=== PATIENT | female | born 1960 | race Caucasian/White ===

== ENCOUNTER 2018-07-24 21:32 | Inpatient (IN) | payer OTHER ==
[~2018-07-24] VITALS: Ht 157.4 cm; Wt 68.3 kg
--- NOTE | ~2018-07-24 | DS ---
[place], [place] DISCHARGE SUMMARY [facility]: [facility]EN [id number] UN[facility] #: [id number] ROOM: 315 DOCTOR: PRIYANKA LOZADA MD BIRTHDATE: [birth year] DOS: 08/16/2018 CHIEF COMPLAINT: "I have memory loss." HISTORY OF PRESENT ILLNESS: This is a 58-year-old white female who presented to the [facility] for psychiatric care. The patient was pink slipped at [facility] in [place]. [place] slip did indicate that she was having significant auditory hallucinations, very bizarre behavior, nonstop pacing and not sleeping at night. The patient was also grossly paranoid and believed that the police or [employer] were out to get her. She was admitted now to rule out organic factors, to stabilize on medication and to determine the least restrictive environment to which she could return. SUMMARY OF HOSPITAL COURSE: The patient was admitted to the unit where her Lexapro and Abilify were discontinued as was trazodone. The patient was started on Remeron for depression and given the severity of her psychosis was started on Invega 6 mg a day. Eventually, it was felt that the Remeron was ineffective, so after many days of treatment this was discontinued and Trintellix 10 mg a day was started. The dose of the Trintellix was subsequently increased to its maximum dose of 20 mg a day. Invega was increased to 9 mg in the morning to attempt to break this significant psychosis. This was unrelenting for the most part. Towards the latter part of her stay, Ativan 1 mg t.i.d. was added with significant benefit. The patient suddenly became much less preoccupied with being sent to [facility] or half-way and was much more redirectable. She seemed calmer and more relaxed. She actually engaged in britton activities much better and even attended to her ADLs better. Because of the significant mental decline and her significant need for support and redirection. A passer was obtained and the patient was subsequently sent to [facility] for further treatment. MENTAL STATUS AT DISCHARGE: She is alert and oriented with time gaps. Mood is somewhat more euthymic and more pleasant. She is much more engaging. She is still somewhat delusional, but this has significantly decreased in frequency and intensity. Memory for the most part is intact with short-term memory gaps. DIAGNOSES: Major depression, recurrent with psychotic features. PLAN: All of her prescriptions have been printed and will be sent with her to [facility]. I will follow the patient psychiatrically. At the time of discharge, she was medically and psychiatrically stable. [place], [place] DISCHARGE SUMMARY NAME: LC BRADEN UNIT #: [id number] ROOM: [facility] DOCTOR: PRIYANKA LOZADA MD BIRTHDATE: [birth year] PRIYANKA LOZADA MD CM:DISCHARG [id number] PRIYANKA LOZADA MD 08/16/18 1830 interface
--- NOTE | ~2018-07-24 | PN ---
[place], [place] PROGRESS NOTE NAME: LC BRADEN UNIT #: [id number] ROOM: 315 DOCTOR: PRIYANKA LOZADA MD BIRTHDATE: [birth year] DATE: 07/30/18 ADDENDUM: Resident note reviewed. Agree with observations, recommendations, and overall treatment plan. PRIYANKA LOZADA MD CM:PNTRANS [id number] [id number] PRIYANKA LOZADA MD 09/02/18 1040 ALEX MILIAN MIS.LLR
--- NOTE | ~2018-07-24 | PR ---
[place], [place] PROGRESS NOTE NAME: LC BRADEN UNIT #: [id number] ROOM: 315 DOCTOR: PRIYANKA LOZADA MD BIRTHDATE: [birth year] DOS: 08/09/2018 CHIEF COMPLAINT: "I don't want to eat because they are going to be taking me to prison soon." SUMMARY OF THE VISIT: Although the patient did make those comments that I have listed above. She did appear calmer and less distraught as I approached her. She did not have the horrible frown on her face and although she mentioned going to prison, she also engaged in other pleasant conversation with me. Nurses and other staff members have noted that she is more engaging in activities and more interested in what is going on. This all corresponds to me starting the Ativan yesterday. MENTAL STATUS: She is alert and oriented to person, place, and approximate to time. Mood does seem to be trending towards euthymia and affect is more appropriate. The anxiety level seems to have dissipated, although she still voices nihilistic and paranoid delusions. Short-term memory has gaps. PLAN: She does seem to be tolerating the Ativan well and I do not see any sedation or somnolence. I will go ahead and increase the dose from 0.5 mg 3 times a day to 1 mg 3 times a day and monitor for risk, benefit, engage her in individual and britton milieu activity, returning then to the least restrictive environment when psychiatrically stable. PRIYANKA LOZADA MD CM:PNTRANS 0939 [id number] PRIYANKA LOZADA MD 08/09/18 1334 interface
--- NOTE | ~2018-07-24 | PN ---
[place], [place] PROGRESS NOTE NAME: LC BRADEN UNIT #: [id number] ROOM: 315 DOCTOR: PRIYANKA LOZADA MD BIRTHDATE: [birth year] DATE: 07/31/18 ADDENDUM: Resident note reviewed. Agree with observations, recommendations, and overall treatment plan. PRIYANKA LOZADA MD CM:PNTRANS 1039 [id number] PRIYANKA LOZADA MD 09/02/18 1040 ALEX MILIAN MIS.LLR
--- NOTE | ~2018-07-24 | PR ---
[place], [place] PROGRESS NOTE NAME: LC BRADEN UNIT #: [id number] ROOM: 310 DOCTOR: BINTA BRAVO DO BIRTHDATE: [birth year] DOS: 07/30/2018 PSYCHIATRIC PROGRESS NOTE CHIEF COMPLAINT: "Okay. Food was yucky, I don't know." SUMMARY OF VISIT: The patient interviewed while sitting in the dining cm. The patient expresses that she does not like the food, but is unsure what would make her eat more or like more food. The patient states that she takes care of her grandkids at home that are about 10 and 12 years old. She mentioned that it has been a while since she spoke to them. Per nursing staff, the patient had very broken up sleep and only slept about 4 hours last night. She continues to eat very little of every meal and she is taking her medications when they are given to her though including Marinol. MENTAL STATUS EXAMINATION: She is alert and oriented. Mood is depressed. Affect is flat, blunted, and constricted. Her speech rate is slow and deliberate. There is no smiley, hypomania or psychosis. Memory for the most part is intact. PLAN: Neurontin level will be checked this morning. Also, we will increase Trintellix to 20 mg at bedtime, Rozerem 8 mg at bedtime. We will engage her in individual and britton milieu activity with plan to return to the least restrictive environment when psychiatrically stable. Binta Bravo, PRIYANKA LOZADA MD CM:PNTRANS [id number] [id number] BINTA BRAVO DO 07/31/18 1550 interface
--- NOTE | ~2018-07-24 | PR ---
[place], [place] PROGRESS NOTE NAME: LC BRADEN UNIT #: [id number] ROOM: 310 DOCTOR: PRIYANKA LOZADA MD BIRTHDATE: [birth year] DOS: 08/01/2018 INTERVAL NOTE CHIEF COMPLAINT: "I am never going to get better. I am not going to get well. I will never leave the hospital." SUMMARY OF THE VISIT: The patient was interviewed as she was sitting in front of an entire breakfast that was left untouched. She remains very depressed and very nihilistic. Her delusional system does seem to be much more progressive. MENTAL STATUS: She is alert and oriented with time gaps. Mood is depressed with flat, blunted affect. There is also a significant delusional component as she is very much nihilistic in her thinking. Short-term memory has gaps. PLAN: At this point in time, given the severity of her delusions, I will increase the Zyprexa from 2.5 to 5 mg at bedtime. This will allow me to discontinue the Rozerem to simplify her medication regimen. Of note, despite the Marinol, she is not eating well and I also wonder if the Marinol could be contributing negatively to her mental status, I will discontinue it and monitor, engage in individual and britton milieu activity, returning to the least restrictive environment when psychiatrically stable. PRIYANKA LOZADA MD CM:PNTRANS 0935 [id number] PRIYANKA LOZADA MD 08/01/18 1553 interface
--- NOTE | ~2018-07-24 | PR ---
[place], [place] PROGRESS NOTE NAME: LC BRADEN UNIT #: [id number] ROOM: 315 DOCTOR: PRIYANKA LOZADA MD BIRTHDATE: [birth year] DOS: 08/15/2018 CHIEF COMPLAINT: "Am I going to be going soon." SUMMARY OF THE VISIT: The patient was interviewed in the dining area. She had already eaten her breakfast. She was sitting quietly there. I did engage her in conversation, telling her that she would be leaving the hospital soon. She smiled and nodded in approval. Overall, she does seem to be trending towards euthymia and does seem to be improving day by day. There are no outward signs of medication side effects and I see no sedation, somnolence, extrapyramidal symptoms, or tardive dyskinesia. MENTAL STATUS: She is alert and oriented to person, place, not necessarily time. Mood does seem to be trending towards euthymia. Affect is more appropriate. There is no smiley, hypomania, or psychosis. Short term memory does have gaps. PLAN: I will maintain her current psychotropic regimen, continue to engage in individual and britton milieu activity, returning to the least restrictive environment when psychiatrically stable. PRIYANKA LOZADA MD CM:PNTRANS [id number] PRIYANKA LOZADA MD 08/15/18 1416 interface
--- NOTE | ~2018-07-24 | PR ---
[place], [place] PROGRESS NOTE NAME: LC BRADEN UNIT #: [id number] ROOM: 315 DOCTOR: PRIYANKA LOZADA MD BIRTHDATE: [birth year] DOS: 08/08/2018 CHIEF COMPLAINT: "This is all fake food and fake medicine, they are going to take me to senior living anyway." SUMMARY OF THE VISIT: The patient was interviewed in the dining area. She had eaten only about 10% of her breakfast and had left the rest. She looked very kelly and distraught as I approached and continued to be very paranoid. There is a great deal of anxiety present as well. MENTAL STATUS: She is alert and oriented with some time gaps. Mood does seem to be depressed with anxious overtones and she remains grossly nihilistic and delusional. Memory for the most part is intact. PLAN: Given the amount of anxiety that is present, I will go ahead and start Ativan 0.5 mg t.i.d. to see if this will dissipate the anxiety and make her more comfortable. We will monitor for risk, benefit, engage in individual and britton milieu activity, returning to the least restrictive environment when psychiatrically stable. PRIYANKA LOZADA MD CM:PNTRANS 0943 1050 PRIYANKA LOZADA MD 08/08/18 1049 interface
--- NOTE | ~2018-07-24 | PR ---
[place], [place] PROGRESS NOTE NAME: LC BRADEN UNIT #: [id number] ROOM: 315 DOCTOR: PRIYANKA LOZADA MD BIRTHDATE: [birth year] DOS: 08/06/2018 CHIEF COMPLAINT: "I don't belong here. I know the police are going to come and arrest me soon." SUMMARY OF THE VISIT: The patient was interviewed in the dining area. As I approached her, she looked very kelly and angry. She engaged in conversation that was rather superficial and very nihilistic. She continues to state that she does not belong here, that her name is not on the list. Again, when I did show her the list and point to her name, she reported to me that that was not her. When I did point out her name armond as well, she also reported that is not her. She is on the wrong unit and because of that she is going to be punished and sent to longterm. The patient had been compliant with her medications, but later after I rounded, the nurse that was attending to her did report that she refused all of her a.m. medicines this morning. MENTAL STATUS: She is alert and oriented to person, place and very approximate to time. Mood does seem to be very depressed and nihilistic in her approach. There are some anxious overtones, as she is very fretful and worried about being arrested. She remains grossly psychotic and delusional. Memory for the most part is intact. PLAN: I am going to attempt to switch off the Zyprexa onto Invega 6 mg in the morning. If she is noncompliant with the Invega, I will consider Risperdal M-Tab and if I have to, utilize an Invega Sustenna prep to improve compliance. We will engage her in individual and britton milieu activities, returning to the least restrictive environment when psychiatrically stable. PRIYANKA LOZADA MD CM:PNTRANS [phone] PRIYANKA LOZADA MD 08/06/18 2333 interface
--- NOTE | ~2018-07-24 | PR ---
[place], [place] PROGRESS NOTE NAME: LC BRADEN UNIT #: [id number] ROOM: 310 DOCTOR: PRIYANKA LOZADA MD BIRTHDATE: [birth year] DOS: 08/02/2018 CHIEF COMPLAINT: "I am never going home, I am never leaving the hospital." SUMMARY OF THE VISIT: The patient was interviewed as she was sitting sipping on an Ensure and watching television. She engaged readily in conversation. She remains very depressed and very nihilistic. Nurses report that she remains very delusional and paranoid and believes that we are giving her fake medicine and are trying to poison her. She also believes that she is on the wrong medical floor and needs to be on the medical floor. She is very hard to redirect and she has not been cooperative with many aspects of her care. MENTAL STATUS: She is alert and oriented with time gaps. Mood does seem to be still depressed with anxious overtones with significant delusions present. No sedation, somnolence or extrapyramidal symptoms are noted. PLAN: I will go ahead and increase her Zyprexa from 5 mg at bedtime to 7.5, maintain her current dose of Trintellix, engage in individual and britton milieu activities, returning to the least restrictive environment when psychiatrically stable. PRIYANKA LOZADA MD CM:PNTRANS [id number] PRIYANKA LOZADA MD 08/02/18 1741 interface
--- NOTE | ~2018-07-24 | PR ---
[place], [place] PROGRESS NOTE NAME: LC BRADEN UNIT #: [id number] ROOM: 310 DOCTOR: BINTA BRAVO DO BIRTHDATE: [birth year] DOS: 07/31/2018 PSYCHIATRIC PROGRESS NOTE CHIEF COMPLAINT: "Ya, I am probably never getting out of here." SUMMARY OF VISIT: The patient is interviewed while lying in bed. She appears very depressed and expressed that she does not think she will ever be able to leave. However when asked, the patient denies being sad or depressed. She did mention that both of her legs are achy. Per nursing staff, she slept throughout the night; however yesterday, she initially started communicating more, stating that she did not want to be here tonight, but she did not like the yelling and screaming. Per staff, the previous night, the patient's roommate was up most of the night, talking and yelling loudly. The patient was then moved to a room that she will have by herself. The patient also did have increased intake yesterday when she was provided with smaller portions of meals multiple times throughout the day; however, last night, the patient was more depressed with limited verbal interactions and poor contact with staff. She refused snacks at night. MENTAL STATUS EXAMINATION: She is alert and oriented. Mood is depressed. Affect is flat and blunted. Her speech rate is slow. There is no hypomania, smiley or psychotic symptoms. Memory for the most part is intact. PLAN: Renew Ativan p.r.n. doses. Start Zyprexa 2.5 mg at bedtime. We will continue to engage in individual and britton milieu activity with plan to return to the least restrictive environment when psychiatrically stable. Binta Bravo, DO PRIYANKA LOZADA MD CM:PNTRANS 0107 BINTA BRAVO DO 08/01/18 0316 interface
--- NOTE | ~2018-07-24 | PR ---
[place], [place] PROGRESS NOTE NAME: LC BRADEN UNIT #: [id number] ROOM: 315 DOCTOR: PRIYANKA LOZADA MD BIRTHDATE: [birth year] DOS: 08/13/2018 INTERVAL NOTE CHIEF COMPLAINT: "Good morning." SUMMARY OF THE VISIT: The patient was interviewed as she was sitting at the edge of her bed. She engaged in brief conversation. She did not mention once about being sent to shelter or alf. She did report that she is feeling tired and did state that she thought she was getting too much medicine now. I did talk to her about lowering the Ativan and she nodded in approval. MENTAL STATUS: She is alert and oriented with time gaps. Mood does seem to be strongly trending towards euthymia. Affect is more appropriate. There is no smiley or hypomania noted. There is no gross psychosis. Short-term memory has mild gaps, but for the most part, she is intact. PLAN: I will go ahead and lower the Ativan from 1 mg 4 times a day to 1 mg 3 times a day and renew her p.r.n. Ativan. PRIYANKA LOZADA MD CM:PNTRANS [phone] PRIYANKA LOZADA MD 08/13/18 1649 interface
--- NOTE | ~2018-07-24 | PR ---
[place], [place] PROGRESS NOTE NAME: LC BRADEN UNIT #: [id number] ROOM: 315 DOCTOR: PRIYANKA LOZADA MD BIRTHDATE: [birth year] DOS: 08/14/2018 CHIEF COMPLAINT: "I want to go home soon." SUMMARY OF THE VISIT: The patient was interviewed in the dining area. She engaged readily in conversation. She did report that she is anxious to go home. At no point in time did she talked about police or [employer] coming to pick her up. She did seem to be slightly brighter and more spontaneous and convincingly denied medication side effects. MENTAL STATUS: She is alert and oriented to self, place, approximate to time. Mood does seem to be trending towards euthymia. Affect is more appropriate. There is no smiley or hypomania. There are no gross psychosis. Short term memory does have some minor gaps. PLAN: I will renew her p.r.n. Ativan should she require intervention, engage in individual and britton milieu activity, returning to the least restrictive environment when psychiatrically stable. PRIYANKA LOZADA MD CM:PNTRANS [phone] PRIYANKA LOZADA MD 08/14/18 1604 interface
--- NOTE | ~2018-07-24 | PR ---
[place], [place] PROGRESS NOTE NAME: LC BRADEN UNIT #: [id number] ROOM: 315 DOCTOR: PRIYANKA LOZADA MD BIRTHDATE: [birth year] DOS: 08/12/2018 INTERVAL NOTE CHIEF COMPLAINT: "I had breakfast." SUMMARY OF THE VISIT: The patient was interviewed as she had finished eating her breakfast and was sitting by herself at a table. She engaged readily in conversation. She did not look as lost, forlorn and distraught as she had and she ate actually engaged in conversation and not ones mentioned that she was going to senior living. She still, however, reports that she is not feeling well, but was not able to elaborate. Overall, she is interacting more and the staff notes that she is going to groups and doing much more. She does not seem to have any sedation or somnolence. I see no extrapyramidal symptoms or tardive dyskinesia. MENTAL STATUS: She is alert and oriented with time gaps. Mood does seem to be strongly trending towards euthymia. Affect is much more appropriate. There is no smiley or hypomania. The psychosis seems to be dissipating. Short term memory remains poor. PLAN: I will increase her Ativan from 1 mg t.i.d. to q.i.d. in an effort to relieve her anxiety. Maintain the other psychotropics, continue to engage in individual and britton milieu activity, returning to the least restrictive environment when psychiatrically stable. PRIYANKA LOZADA MD CM:PNTRANS 0 18 PRIYANKA LOZADA MD 08/12/182218 interface
--- NOTE | ~2018-07-24 | PR ---
[place], [place] PROGRESS NOTE NAME: LC BRADEN UNIT #: [id number] ROOM: 310 DOCTOR: DHARMESH MORTENSEN CNP BIRTHDATE: [birth year] DOS: 08/03/2018 CHIEF COMPLAINT: "I am not happy and I am not sad." SUMMARY OF VISIT: The patient was interviewed as she sat in the dining room, participating in activities. She denies feeling anxious or agitated. She reports that she does not sleep and that she has no appetite. Staff reports that the patient did sleep for 6 hours last night and her appetite has been good. The patient did receive p.r.n. Ativan IM yesterday as well as p.r.n. Ativan p.o. yesterday. She did have a head CT that was ordered; however, the results are not available at this time. MENTAL STATUS EXAMINATION: The patient is alert and oriented to person, place. She was pleasant and cooperative. No overt smiley or hypomania noted. No delusions or paranoia noted. No psychotic symptoms noted. No auditory or visual hallucinations noted. Her mood seems somewhat depressed. Her affect is flat. PLAN: We will continue the patient's medications as prescribed at this time and continue to monitor how she tolerates them. Continue to engage the patient in individual and britton milieu activity. Continue fall and safety precautions. Plan to return the patient to the least restrictive environment when she is considered psychiatrically stable. Dharmesh Mortensen CNP CM:PNTRANS [id number] DHARMESH MORTENSEN CNP 08/04/18 0020 interface
--- NOTE | ~2018-07-24 | PR ---
[place], [place] PROGRESS NOTE NAME: LC BRADEN UNIT #: [id number] ROOM: 310 DOCTOR: DHARMESH MORTENSEN CNP BIRTHDATE: [birth year] DOS: 08/04/2018 CHIEF COMPLAINT: "This is my sister and [id number]." SUMMARY OF VISIT: The patient was interviewed as she sat in the dining room, visiting with her family. The patient was calm at this time. She does verbalize minimally. The patient reports that she does not sleep and that her appetite is not good. She reports that she is neither happy nor sad. Staff reports that the patient seems to be confused at times with increased agitation and can be accusatory and this seems to increase in the evening hours. MENTAL STATUS EXAMINATION: The patient is alert and oriented to person, place and time. There is no overt smiley or hypomania noted. No delusions or paranoia noted at this time, no psychotic symptoms noted, no auditory or visual hallucinations noted. The patient's mood is calm. Her affect is flat. PLAN: We will increase the patient's Zyprexa to 10 mg daily and willing to change the time to 1700 for dosing in order to try to britton off the increased agitation in the evenings. CT scan results are still pending. We will continue to encourage the patient to engage in individual and britton milieu activity. Continue fall and safety precautions. Plan is to return the patient to the least restrictive environment when she is considered psychiatrically stable. Dharmesh Mortensen CNP CM:PNTRANS 1405 [id number] DHARMESH MORTENSEN CNP 08/04/18 2243 interface
--- NOTE | ~2018-07-24 | PR ---
[place], [place] PROGRESS NOTE NAME: LC BRADEN UNIT #: [id number] ROOM: 310 DOCTOR: PRIYANKA LOZADA MD BIRTHDATE: [birth year] DOS: 08/05/2018 INTERVAL NOTE CHIEF COMPLAINT: "I don't belong here, that is not my name." SUMMARY OF THE VISIT: The patient was interviewed in the dining area where she was sitting at the table with several female peers. She stopped and engaged in conversation with me looking rather depressed, forlorn and angry. She reports that she does not belong here that this is not her medical unit that her name is not on the list. When I provided a list to her pointing directly to her name, she looked me in the eye and stated that that was not her name. I did attempt to show her name band with her name on it and again she stated that this was not her name. She was very paranoid and delusional and I could not reason with her whatsoever. She reports that she is sleeping slightly better and eating slightly better, but otherwise remains very symptomatic. She is not exhibiting any signs suggestive of sedation, somnolence, extrapyramidal symptoms/tardive dyskinesia. MENTAL STATUS: She is alert and oriented with some time gaps. Mood does still seem to be depressed with anxious overtones and significant paranoia and delusions. Memory does have some gaps. PLAN: I will go ahead and continue to push her Zyprexa upward bringing the dose from 10 to 15 mg at bedtime in an effort to break the delusional system and began to have her be able to engage more readily in meaningful conversation. We will engage in individual and britton milieu activity, returning to the least restrictive environment when psychiatrically stable. PRIYANKA LOZADA MD CM:PNTRANS 4 [phone] PRIYANKA LOZADA MD 08/05/18 835 interface
--- NOTE | ~2018-07-24 | PR ---
[place], [place] PROGRESS NOTE NAME: LC BRADEN UNIT #: [id number] ROOM: 310 DOCTOR: PRIYANKA LOZADA MD BIRTHDATE: [birth year] DOS: 07/29/2018 INTERVAL NOTE CHIEF COMPLAINT: "I just don't feel like eating food does not taste good, nothing tastes good." SUMMARY OF THE VISIT: The patient was interviewed in the dining area. She was sitting there with a milk in front of her, but she had not touched it at all. She appeared very depressed, very flat and blunted and seemed very miserable. She focused mainly on poor sleep and poor appetite and also complained of having no energy or desire to do anything. Beyond that she was not able to elaborate much. MENTAL STATUS: Outwardly, she is alert and oriented. Mood does seem to be overwhelmingly depressed. Affect is flat, blunted and constricted. Her speech rate is slow and deliberate. Thoughts are rather sparse and she does not elaborate nor she spontaneous. There is no hypomania or smiley, and I do not see the presence of any psychotic symptoms. Memory for the most part is intact. PLAN: Although Liset Walker did just recently start Cymbalta, I am going to discontinue that in lieu of Trintellix 10 mg at bedtime as a more activating antidepressant with a different mechanism of action. I will start her on zinc 220 mg in the morning to improve her sense of taste and also Marinol 2.5 mg twice daily to improve her p.o. intake. I will check a Neurontin level in the a.m. to ensure that this is therapeutic. We will engage her in individual and britton milieu activity with the ultimate plan to return to the least restrictive environment when psychiatrically stable. PRIYANKA LOZADA MD CM:PNTRANS [phone] PRIYANKA LOZADA MD 07/30/18 0047 interface
--- NOTE | ~2018-07-24 | PR ---
[place], [place] PROGRESS NOTE NAME: LC BRADEN UNIT #: [id number] ROOM: 315 DOCTOR: PRIYANKA LOZADA MD BIRTHDATE: [birth year] DOS: 08/07/2018 INTERVAL NOTE CHIEF COMPLAINT: "The police are going to come and get me soon." SUMMARY OF THE VISIT: The patient was sitting in the dining area. She had a scowl on her face and looked very distraught. She continues to be grossly paranoid and delusional, believing that the police are coming to get her. She reports that she does not want to eat, does not want to sleep and does not yet seem to be getting any benefit from the current medication regimen. MENTAL STATUS: She is alert and oriented with some time gaps. Mood does seem to be very depressed and despondent. Affect is flat and blunted and constricted. She remains grossly nihilistic and paranoid. Memory has gaps. PLAN: Her Neurontin level is mildly low at 3.9. I will go ahead and increase the Neurontin to 400 mg q.8 hours to see if this helps stabilize her mood any. I will renew her Ativan p.r.n., should she require intervention, maintain her dose of Trintellix and Invega. At this point, support and monitor, engage in individual and britton milieu activity, returning to the least restrictive environment when psychiatrically stable. PRIYANKA LOZADA MD CM:PNTRANS 5 [phone] PRIYANKA LOZADA MD 08/07/182134 interface
--- NOTE | ~2018-07-24 | PR ---
[place], [place] PROGRESS NOTE NAME: LC BRADEN UNIT #: [id number] ROOM: 315 DOCTOR: PRIYANKA LOZADA MD BIRTHDATE: [birth year] DOS: 08/11/2018 CHIEF COMPLAINT: "I'm okay." SUMMARY OF THE VISIT: The patient was interviewed in the dining area. She continues to be somewhat negative, but for the first time in my memory she did not complain of having to be sent to longterm; although she continues to look depressed and forlorn, her responses were very much goal oriented and were directly related to the questions asked of her. Outwardly, she is not exhibiting sedation, somnolence, extrapyramidal symptoms or tardive dyskinesia. MENTAL STATUS: She is alert and oriented to person, place, not necessarily time. Mood does seem to be still depressed, but improving. Affect is much more appropriate. There is no smiley or hypomania. There are still psychotic symptoms, but they are much less severe. Short term memory does have gaps. PLAN: I will maintain her current psychotropic regimen, engage in individual and britton milieu activity with the plan to return to the least restrictive environment when psychiatrically stable. PRIYANKA LOZADA MD CM:PNTRANS [phone] PRIYANKA LOZADA MD 08/12/18 0028 interface
--- NOTE | ~2018-07-24 | PR ---
[place], [place] PROGRESS NOTE NAME: LC BRADEN UNIT #: [id number] ROOM: 315 DOCTOR: PRIYANKA LOZADA MD BIRTHDATE: [birth year] DOS: 08/10/2018 CHIEF COMPLAINT: "It doesn't matter though just be taking me to custodial." SUMMARY OF THE VISIT: The patient was interviewed as she was sitting in the dining area. Once again, she seemed much less terse and distraught as she had previously and although she did complain that she was going to be sent to custodial. Her complaints did not seem to have the vim and vigor that they normally had. She was able to be deflected much more readily and had more normal conversation. She outwardly does seem to be tolerating the current medication regimen well and I see no sedation, somnolence, extrapyramidal symptoms or tardive dyskinesia. MENTAL STATUS: She is alert and oriented with time gaps. Mood does seem to be steadily trending towards euthymia. Affect is more appropriate. The psychosis seems to be dissipating. Memory does have some gaps. PLAN: I will increase her Invega from 6 to 9 mg in the morning. I will check a Neurontin level in the a.m. to ensure it is therapeutic. Continue to engage her in individual and britton milieu activity, returning to the least restrictive environment when psychiatrically stable. PRIYANKA LOZADA MD CM:PNTRANS [phone] PRIYANKA LOZADA MD 08/10/18 1024 interface
[2018-07-24] MEDS ORDERED: LEXAPRO10 MG PO (22:32)
[2018-07-24] MEDS ORDERED: ABILIFY10 MG PO (22:34)
[2018-07-24] MEDS ORDERED: NEURONTIN300 MG PO (22:34)
[2018-07-24] MEDS ORDERED: MELATONIN3 MG PO (22:35)
[2018-07-24] MEDS ORDERED: ZOCOR20 MG PO (22:35)
[2018-07-24] MEDS ORDERED: ALEVE220 M1 PO (22:36)
[2018-07-24] MEDS ORDERED: PRINIVIL10 MG PO (22:37)
[2018-07-24] MEDS ORDERED: XYZAL5 M1 PO (22:37)
[2018-07-24 23:08] VITALS: BP 115/74
[2018-07-24 23:15] VITALS: BP 115/74
--- NOTE | 2018-07-24 23:30 | NUR ---
LC BRADEN a 58 year old F admitted via ambulance from the ADMITTING as a emergency 72 hr. hold admission. Arrived on unit at 2300PM. ALLERGIES: VRAYLAR, CIPROFLOXACIN, PERCOCET, VICODIN. Vital signs are: 98.0-82-16 115/74. CLIENT IS PINK SLIPPED The client signed the following forms with stated understanding: Authorization For The Release of Medical Information, Clothing List, , Consent and Release Forms/Receipt of Rights, Acknowledgement of Advance Directive Information, Behavioral Health Consent Form, and Informed Consent of Medications. Admitted under the services of Dr. KIERRA HAWTHORNE,[facility]. A search was conducted and hazardous articles were removed. Client was oriented to the unit. WAS GIVING NIGHTTIME MEDICATIONS PRIOR TO LEAVING [facility] BY HER SISTER PER CLIENT. DROWSY UPON ARRIVAL. ABLE TO PARTICIPATE IN ADMISSION. DECLINED SKIN ASSESSMENT WILMER SHAY
[2018-07-24] MEDS ORDERED: TRAZODONE100 MG PO (23:31)
--- NOTE | 2018-07-25 00:06 | NUR ---
DR CAST HERE TO SEE CLIENT
--- NOTE | 2018-07-25 02:28 | NUR ---
24 HR chart check completed.
--- NOTE | 2018-07-25 05:30 | NUR ---
SLEPT WELL PAST 0030AM. MOVED SELF IN BED WITHOUT PROBLEMS
[2018-07-25 06:44] LABS: BASO # 0.1 10*3/uL (0.0-0.1); BASO % 0.8 % (0.0-1.0); EOS # 0.1 10*3/uL (0.0-0.4); EOS % 0.9 % (1.0-4.0); HEMATOCRIT 41.1 % (37.0-47.0); HEMOGLOBIN 14.3 g/dl (12.0-16.0); LYMPH # 1.9 10*3/uL (1.3-4.4); LYMPH % 24.7 % (27.0-41.0); MEAN CELL VOLUME 90.7 fl (81.0-99.0); MEAN CORPUSCULAR HGB 31.6 pg (27.0-31.0); MEAN CORPUSCULAR HGB CONC 34.8 g/dl (33.0-37.0); MEAN PLATELET VOLUME 8.3 fl (9.6-12.3); MONO # 0.7 10*3/uL (0.1-1.0); MONO % 9.2 % (3.0-9.0); NEUT % 64.1 % (47.0-73.0); PLATELET COUNT AUTOMATED 300 10*3/uL (130-400); RED BLOOD COUNT 4.53 10*6/uL (4.10-5.10); RED CELL DISTRI WIDTH 12.9 % (0-14.5); WHITE BLOOD COUNT 7.7 10*3/uL (4.8-10.8)
[2018-07-25 07:09] LABS: ALBUMIN 4.1 gm/dl (3.1-4.5); BUN 12 mg/dl (7-24); CHLORIDE 106 mmol/L (98-107); CHOLESTEROL 155 mg/dL (<200); CREATININE 0.63 mg/dL (0.55-1.02); HDL CHOLESTEROL 75 mg/dl (40-60); LDL CHOLESTEROL 68 mg/dL (9-159); POTASSIUM 3.5 mmol/L (3.5-5.1); SGOT/AST 13 IU/L (3-35); SGPT/ALT 22 U/L (12-78); SODIUM 140 mmol/L (136-145); TOTAL PROTEIN 6.9 gm/dL (6.4-8.2); TRIGLYCERIDES 61 mg/dl (<150); VLDL CHOLESTEROL 12 mg/dL (6-40)
[2018-07-25 07:14] LABS: ALKALINE PHOSPHATASE 45 U/L (45-117); THYROID STIM HORMONE (HS) 0.886 uIU/ml (0.358-4.75)
[2018-07-25 07:37] LABS: VITAMIN D, 25-HYDROXY 31.5 ng/mL (30-100)
--- NOTE | 2018-07-25 07:45 | NUR ---
JP ESTRADA DIGITAL DESIGNER ON UNIT TO SEE PT AT THIS TIME. UPDATE GIVEN. PT IS AWAKE, ALERT AND VERBAL. SITTING AT DINING ROOM TABLE AWAITING ARRIVAL OF BREAKFAST TRAYS.
[2018-07-25 07:55] VITALS: BP 116/75
--- NOTE | 2018-07-25 08:15 | NUR ---
Treatment Plan meeting with Liset AGUILAR, RN, SW and Physical Therapy Assistant. Plan for discharge next week. Pt. currently at home and Plan is for her to return home at discharge.
--- NOTE | 2018-07-25 10:35 | NUR ---
AND ON UNIT TO SEE PT AT THIS TIME.
--- NOTE | 2018-07-25 13:03 | NUR ---
Psychosocial assessment completed this AM. Attempted to reach Pt's mother Leticia Fuentes and Pt's sister Snehal Perez by phone. Unable to do so,
--- NOTE | 2018-07-25 13:07 | NUR ---
Francia, [employer] social work case manager for Pt's children of whom Pt has custody, here to meet with this life underwriter. Francia shared her safety concerns for the children Jarad and Shay, as well as for Huey the 18 year old. According to Francia, Jarad has behavioral health diagnoses and is not safe to remain in the home with Huey being the caregiver. Francia has contacted a sister of Pt's, Elisabeth, who is willing to care for Jarad until Pt is able to do so. Elisabeth resides in [place] and Pt needs to sign a statement that she is agreeable to Jarad leaving the state temporarily. This life underwriter believes that Pt is able to sign if Pt is agreeable to this. Pt is A&Ox3. Phoned Liset AGUILAR who also confirmed that Pt is capable of understanding and making decisions. Also spoke to Bebeto Beaulieu RN, Director of [facility], and informed him of the need for this written statement. Met with Pt and Francia after collaborating with colleagues. Francia explained to Pt about the preferred plan for Jarad. Pt voiced understanding and stated that she would be agreeable to signing a statement. Francia plans on faxing the statement to this life underwriter who will then have Pt sign it in order to fax back to Francia. Will await faxed statement.
--- NOTE | 2018-07-25 13:36 | NUR ---
Brief family meeting held with Pt and her mother Leticia Fuentes. Pt voiced concern that she would be transferred to another hospital [facility]. Reassured pt that pt would remain at [facility]. Leticia shared about Pt history as Pt had previously. Leticia confirmed that she is caring for Aniko and will continue to keep her until Pt is able to care for her. Briefly discussed discharge needs. Pt is unsure if she wants to remain at [facility] for her psychiatric needs. Will discuss this further at a different time.
--- NOTE | 2018-07-25 15:12 | NUR ---
Recieved phone call from pt's brother Storm Charley, pt gave this nurse permission to speak with and update brother. Storm requested to speak with Liset AGUILAR, this nurse made aware we could submit a request for EDITOR SOUND to call him tomorrow and inquired whether this nurse could answer any questions or address any concerns he might have in the meantime. Storm states Ambika has expressed concern to him and other family members about being transferred to [facility] and he would like to speak to EDITOR SOUND to address this concern. This RN updated Storm that there are no plans for pt to be transferred to any other facility and that pt had expressed desire to stay here longer for further treatment. Storm states "oh, okay, that's good, thank you". Storm requested this RN speak with pt and update her as such. This RN inquired with brother whether he had any other concerns for which he needed to speak with the EDITOR SOUND. Brother states "no, that answers it". This RN spoke with pt and assured her she was not being transferred to [facility]. Pt states "ok, good". This RN encouraged pt to come to staff with any further questions or concerns. Pt states "ok".
--- NOTE | 2018-07-25 15:43 | NUR ---
P- DEPRESSED MOOD, PT REPORTS FEELING "A LITTLE SAD". FLAT AFFECT. ISOLATIVE TO ROOM. PERIODS OF MILD ST MEMORY GAPS/CONFUSION NOTED AT TIMES. I- ORIENTATION, MOOD AND BEHAVIOR ASSESSED. ASSESSED PT FOR SI/HI, INTENT OR PLAN. ASSESSED PT FOR S/S HALLUCINATIONS, PARANOIA AND/OR DELUSIONS. MEDICATIONS ADMINISTERED PER PHYSICIAN'S ORDERS. ASSISTANCE WITH ADL CARE PROVIDED NEEDED. ENCOURAGED PT TO ATTEND AND PARTICIPATE IN [facility] GROUPS AND ACTIVITIES. R- PT IS ALERT AND ORIENTED X4. MILD ST MEMORY GAPS/CONFUSION NOTED AT TIMES. RESPS EASY AND EVEN ON ROOM AIR. MOOD APPEARS DEPRESSED WITH FLAT AFFECT. SPEECH IS SLOW, COHERENT, ABLE TO MAKE NEEDS KNOWN WITHOUT DIFFICULTY. PT ADMITS TO FEELING "A LITTLE SAD". PT DENIES FEELING HOPELESS. PT DENIES SI/HI, INTENT OR PLAN. PT DENIES HALLUCATIONS, NO RESPONSE TO INTERNAL STIMULI NOTED. NO PARANOIA OR DELUSIONS NOTED. PT IS MEDICATION COMPLIANT WITHOUT DIFFICULTY. PT IS CALM, PLEASANT AND COOPERATIVE. PT ISOLATIVE TO ROOM A MAJORITY OF THE SHIFT, PT NOT NOTED TO BE NAPPING PT HAS BEEN OBSERVED LAYING IN BED AWARE DURING ROUTINE SAFETY CHECKS. PT IS AMBULATORY WITH STEADY GAIT, INDEPENDENT WITH ADLS, CONTINENT OF BOWEL AND BLADDER. P- PLAN TO CONTINUE CURRENT TREATMENT, CONTINUE TO MONITOR MOOD AND BEHAVIORS, PROVIDE APPROPRIATE REORIENTATION, REDIRECTION AND 1:1 NEEDED. CONTINUE TO ENCOURAGE MEDICATION COMPLIANCE, WELL GROUP ATTENDANCE AND PARTICIPATION.
--- NOTE | 2018-07-25 17:57 | NUR ---
SHIFT CHART CHECK COMPLETED.
--- NOTE | 2018-07-25 19:54 | NUR ---
PT RESTING IN BED AT THIS TIME. AWAKE AND ALERT. EASILY CONVERSED WITH THIS RN. RESPS EASY AND EVEN ON ROOM AIR.
[2018-07-25 20:00] VITALS: BP 106/69
--- NOTE | 2018-07-25 20:30 | NUR ---
PT TOOK A SHOWER THIS SHIFT BUT REFUSES ORAL CARE.
--- NOTE | 2018-07-26 00:54 | NUR ---
P-MOOD IS DEPRESSED WITH BLUNTED AFFECT. STATES SHE FEELS "OFF" BUT IS UNABLE TO ELABORATE. SLOW TO PROCESS AND RESPOND AT TIMES. DENIES ANY SI/HI, PLAN, INTENT. DENIES ANY ANXIETY THIS SHIFT. I-EMOTIONAL SUPPORT PROVIDED, ALLOWED PT TO VENT FEELINGS. 1:1 COMPLETED THIS EVENING. R-PT REMAINS ISOLATIVE TO ROOM DESPITE ENCOURAGEMENT FROM STAFF TO INCREASE PEER INTERACTIONS. MEDICATION COMPLIANT WITHOUT DIFFICULTY. ABLE TO VERBALIZE NEEDS AND WANTS. P-ENCOURAGE AM GROUPS AND SOCIAL INTERACTIONS WITH PEERS
--- NOTE | 2018-07-26 01:07 | NUR ---
24 HR chart check completed.
--- NOTE | 2018-07-26 04:02 | NUR ---
PT RESTING IN BED WITH EYES CLOSED.
--- NOTE | 2018-07-26 06:16 | NUR ---
PT REFUSED HS SNACK. SLEPT PAST 2144 WITHOUT AWAKENING AND HAD SHOWER THIS SHIFT.
--- NOTE | 2018-07-26 07:31 | NUR ---
PT RESTING QUIETLY IN BED, EASILY AROUSABLE VIA VERBAL/TACTILE STIMULI, MENTAL HEALTH WORKER ASSISTING PT IN GETTING UP FOR BREAKFAST. JP ESTRADA BAGGAGE HANDLING SUPERVISOR ON UNIT TO SEE PT AT THIS TIME, UPDATE GIVEN.
[2018-07-26 07:44] VITALS: BP 111/62
--- NOTE | 2018-07-26 08:15 | NUR ---
Treatment Plan meeting with Liset AGUILAR, RN, SW and Application Penetration Tester. Plan for discharge next week. Pt. from home and will return home at discharge.
--- NOTE | 2018-07-26 09:01 | NUR ---
PHYSICAL THERAPY PAtient sleeping at this time. Thank you for this referral. Giovana Portillo,PT
--- NOTE | 2018-07-26 10:10 | NUR ---
AND ON UNIT TO SEE PT AT THIS TIME.
--- NOTE | 2018-07-26 10:45 | NUR ---
RECIEVED CALL FROM PT'S SISTER JULIETTE REQUESTING UPDATE, PT GAVE PERMISSION FOR THIS RN TO UPDATE SISTER. UPDATE PROVIDED. AWARE OF MEDICATION CHANGES THIS DATE. ALL QUESTIONS ANSWERED. SISTER REQUESTS STAFF ENCOURAGE PT TO EAT AT LEAST 50% OF MEALS. MENTAL HEALTH WORKERS UPDATED.
--- NOTE | 2018-07-26 13:05 | NUR ---
P- DEPRESSED MOOD WITH FLAT AFFECT. PT REPORTS FEELING "HAZY, LIKE I'M IN A FOG". ISOLATIVE TO ROOM. I- ORIENTATION, MOOD AND BEHAVIOR ASSESSED. ASSESSED FOR SI/HI, INTENT OR PLAN. ASSESSED PT FOR S/S HALLUCINATIONS, PARANOIA AND/OR DELUSIONS. ASSISTANCE WITH ADL CARE PROVIDED NEEDED. ENCOURAGED PT TO ATTEND AND PARTICIPATE IN [facility] GROUPS AND ACTIVITIES. R- PT IS ALERT AND ORIENTED X4. RESPS EASY AND EVEN ON ROOM AIR. MOOD REMAINS DEPRESSED, PT ADMITS TO FEELING BOTH SAD AND DEPRESSED. PT PRESENTS WITH FLAT AFFECT. SPEECH IS SLOW, COHERENT, ABLE TO MAKE NEEDS KNOWN WITHOUT DIFFICULTY. PT DENIES SI/HI, INTENT OR PLAN. PT DENIES HALLUCINATIONS, NO RESPONSE TO INTERNAL STIMULI NOTED. NO PARANOIA OR DELUSIONS NOTED. PT IS CALM, PLEASANT AND COOPERATIVE. ISOLATIVE TO ROOM AT TIMES, PT ENCOURAGED TO STAY OUT OF ROOM AFTER LUNCH AND IS SITTING IN DINING ROOM WITH PEERS AT THIS TIME CONVERSING AND WATCHING A MOVIE. PT IS MEDICATION COMPLIANT WITHOUT DIFFICULTY. JP GUTIERREZ IN THIS AM TO SEE PT, AWARE PT STATES SHE FEELS "HAZY" AND "IN A FOG". MEDICATION ADJUSTMENTS MADE. PATIENT AWARE AND AGREEABLE. P- PLAN TO CONTINUE CURRENT TREATMENT, CONTINUE TO MONITOR MOOD AND BEHAVIORS, PROVIDE APPROPRIATE REORIENTATION, REDIRECTION AND 1:1 NEEDED. CONTINUE TO ENCOURAGE MEDICATION COMPLIANCE WELL GROUP ATTENDANCE AND PARTICIPATION.
--- NOTE | 2018-07-26 13:13 | NUR ---
PT ATE 50% OF LUNCH WITH MUCH ENCOURAGEMENT PROVIDED FROM MULTIPLE STAFF. WILL CONTINUE TO ENCOURAGE INCREASED PO INTAKE AND ENCOURAGE PT TO ENGAGE IN ACTIVTIES WITH PEERS AND STAFF TO DECREASE ISOLATIVE BEHAVIORS.
--- NOTE | 2018-07-26 13:59 | NUR ---
Observed Pt in afternoon group activity. Pt was slow in movement. Pt displayed a flat affect. Pt was slow to respond when speaking briefly to this automobile and property underwriter. It was also noted that Pt watched her peers interacting but would not participate in conversation.
--- NOTE | 2018-07-26 14:00 | NUR ---
PHYSICAL THERAPY PAtient at group. Giovana Portillo,PT
--- NOTE | 2018-07-26 15:53 | NUR ---
PT SHOWERING AT THIS TIME WITH ASSIST OF MENTAL HEALTH WORKER X1.
--- NOTE | 2018-07-26 15:58 | NUR ---
PHYSICAL THERAPY Patient evaluated on 3, full evaluation to follow. Continue with PT as per plan of care with fall, unit three and acute debility precautions. Recommend return to prior facility home ehalessandro RN and PT and aides. PAtient is moderate complexity via chart review, tests and evaluation: 83722. Thank you for this referral. Giovana Portillo,PT
[2018-07-26 20:12] VITALS: BP 103/71
--- NOTE | 2018-07-26 22:02 | NUR ---
PT WAS AMBULATING IN HALLWAY THIS EVENING WITH SLOW AND STEADY GAIT. MEDICATION COMPLIANT WITH HS MEDICATIONS WITHOUT DIFFICULTY. RESTING IN BED WITH EYES CLOSED AT THIS TIME. RESPS EASY AND EVEN ON ROOM AIR.
--- NOTE | 2018-07-27 05:32 | NUR ---
P-MOOD IS DEPRESSED WITH BLUNTED AFFECT. SLOW TO PROCESS AND RESPOND AT TIMES. DENIES ANY SI/HI, PLAN, INTENT. DENIES ANY ANXIETY THIS SHIFT. I-EMOTIONAL SUPPORT PROVIDED, ALLOWED PT TO VENT FEELINGS. 1:1 COMPLETED THIS EVENING. R-PT REMAINS ISOLATIVE TO ROOM DESPITE ENCOURAGEMENT FROM STAFF TO INCREASE PEER INTERACTIONS. MEDICATION COMPLIANT WITHOUT DIFFICULTY. ABLE TO VERBALIZE NEEDS AND WANTS. P-ENCOURAGE AM GROUPS AND SOCIAL INTERACTIONS WITH PEERS
--- NOTE | 2018-07-27 06:41 | NUR ---
PT REFUSED SNACK. SLEPT 9 HRS UNINTERRUPTED.
[2018-07-27 07:39] VITALS: BP 131/80
--- NOTE | 2018-07-27 08:00 | NUR ---
PT IN DINING ROOM WITH PEERS. QUIET AND WITHDRAWN AT THIS TIME.
[2018-07-27 08:35] LABS: BILIRUBIN NEGATIVE (NEGATIVE); BLOOD NEGATIVE (NEGATIVE); CLARITY CLEAR (CLEAR); COLOR YELLOW (YELLOW); GLUCOSE NEGATIVE (NEGATIVE); KETONE NEGATIVE (NEGATIVE); LEUKO ESTERASE NEGATIVE (NEGATIVE); NITRITE NEGATIVE (NEGATIVE); SPECIFIC GRAVITY <= 1.005 (1.005-1.030); UROBILINOGEN 0.2 E.U./dl (0.2-1.0)
--- NOTE | 2018-07-27 09:59 | NUR ---
P-PT ISOLATIVE AND WITHDRAWN TO SELF. I-PT IS ASSESSED FOR ORIENTATION, AFFECT AND MOOD. ASSESSED FOR SI/HI. ASSESSED FOR HALLUCINATIONS OR DELUSIONS. ASSESSED FOR APPETITE, SLEEP, MOBILITY AND CONTINENCE. R-PT IS ORIENTED TO PLACE, AND APPROXIMATE TO TIME, PT ATTEMPTED TO STATE "I DON'T KNOW" RESPONSE TO VERBAL CUES, AFTER ENCOURAGEMENT, PT RESPONDED APPROPRIATELY. PT AFFECT IS FLAT, MOOD IS DEPRESSED. PT STATED SHE WAS NOT GOING TO GO TO GROUP, AFTER MUCH ENCOURAGEMENT, PT ATTENDED AND SAT AT TABLE WITH PEERS. NO OVERT S/S OF ATTENDING TO INTERNAL STIMULI. PT DENIES HALLUCINATIONS AND DELUSIONS. PT DENIES SI/HI. APPETITE FOR BREAKFAST WAS POOR, ONLY CONSUMING 10% OF SOLIDS. PT IS DRINKING FLUIDS, 120CC AT BREAKFAST AND 120CC WITH AM MED PASS. PER OBSERVATION REPORT, PT SLEPT 9 HOURS LAST NIGHT. PT IS AMBULATORY WITH STEADY GAIT AND CONTINENT OF BOWEL AND BLADDER. MEDICATION COMPLIANT WITHOUT DIFFICULTY THIS AM. P-CONTINUE TO ENCOURAGE PT TO PARTICIPATE IN GROUP THERAPY FOR SUPPORT AND SOCIALIZATION. ENCOURAGE PT TO EXPRESS SELF TO STAFF. ENCOURAGE APPROPRIATE VERBAL INTERACTIONS WITH STAFF AND PEERS. CONTINUE CURRENT TREATMENT PLAN.
--- NOTE | 2018-07-27 11:47 | NUR ---
AM GROUP/EXERCISES/BINGO PT ATTENDED AND PARTICIPATED PART OF GROUP. PT KEPT ATTEMPTING TO GET UP AND LEAVE BUT EASILY REDIRECTED BACK TO GROUP. PT EVENTUALLY LEFT GROUP AND DID NOT RETURN. PT QUIET AND KEPT TO SELF. PT WILL CONTINUE TO BE ENCOURAGED TO ATTEND AND PARTICIPATE IN FUTURE GROUP SESSIONS.
--- NOTE | 2018-07-27 12:40 | NUR ---
PT BACK IN ROOM LAYING DOWN, STATING "I JUST CAN'T"
--- NOTE | 2018-07-27 14:51 | NUR ---
Shift chart check completed.
--- NOTE | 2018-07-27 16:21 | NUR ---
PM GROUP/MUSIC/ART PT CHOSE NOT TO ATTEND BUT TO REMAIN IN BED. PT WILL CONTNINUE TO BE ENCOURAGED TO ATTEND AND PARTICIPATE IN FUTURE GROUP SESSIONS.
[2018-07-27 20:00] VITALS: BP 106/70
--- NOTE | 2018-07-27 22:04 | NUR ---
Patient alert to person and place with some confusion at times. Patient is isolative and withdrawn to self. Patient is compliant with medications without any difficulty. No SI/HI noted. No signs of any hallucinations/delusions noted at this time. Offered 1:1 with patient for emotional support. Plan to continue to provide 1:1 for emotional support. Continue to encourage medication compliance. Q 15 minute safety checks continued and maintained. See [facility] flowsheet for further documentation.
--- NOTE | 2018-07-28 00:14 | NUR ---
24 HR chart check completed.
--- NOTE | 2018-07-28 05:41 | NUR ---
Patient slept approx. 6 hours throughout shift. Q 15 minute safety checks continued and maintained.
[2018-07-28 07:42] VITALS: BP 104/68
--- NOTE | 2018-07-28 08:52 | NUR ---
RECHECKED BP MANUALLY 98/70, DR. KOHLI NOTIFIED, HOLD LISINOPRIL AND RECHECK BP AT 12 NOON.
--- NOTE | 2018-07-28 11:00 | NUR ---
DR. CURRY ON UNIT TO ASSESS PATIENT.
--- NOTE | 2018-07-28 12:40 | NUR ---
RECHECK MANUALLY BP 92/64, DR. KOHLI NOTIFIED.
--- NOTE | 2018-07-28 15:26 | NUR ---
P: ISOLATIVE, WITHDRAWN WITH FLAT AFFECT I: ONE ON ONE, ENCOURAGED TO PARTICIPATE IN GROUP SESSION R: PATIENT IS ALERT TO PERSON, PLACE AND SITUATION WITH SLIGHT CONFUSION. MOOD IS DEPRESSED, HOPELESS/HELPLESS WITH FLAT AFFECT. DENIES ANY HALLUCINATIONS, DELUSIONS, HI/SI OR PAIN. MEDICATION COMPLAINT WITH EDUCATION PROVIDED. Q 15 MINUTE SAFETY CHECKS MAINTAINED. 1 PERSON ASSIST WITH ACTIVITIES OF DAILY LIVING, CONTINENT OF BOWEL AND BLADDER. UP IN WHEELCHAIR, SELF PROPELS INDEPENDENTLY. SET UP FOR MEALS, INTAKES ARE GOOD WITH ADEQUATE FLUIDS. INTERACTIVE WITH STAFF, ATTENDED GROUP SESSION, BUT DID NOT PARTICIPATE. P: MONITOR FOR MOOD CHANGES, PROVIDE ONE ON ONE AND REDIRECTION, CONTINUE TO ENCOURAGE GROUP PARTICIPATION AND INTERACTIVE WITH STAFF AND OTHER PATIENTS.
--- NOTE | 2018-07-28 16:39 | NUR ---
PM GROUP/GAMES/CRAFTS PT IN ATTENDANCE BUT CHOSE TO ISOLATE SELF AND NOT PARTICIPATE IN ANY ACTIVITY. PT DID NOT TRY TO LEAVE, BUT WOULD FALL ASLEEP EVERY NOW AND THEN.PT DID NOT EXPRESS ANY ANXIETY AT THIS TIME. PT WILL CONTNINUE TO ATTEND AND BE ENCOURAGED TO PARTICIPATE IN FUTURE GROUP SESSIONS.
[2018-07-28 20:00] VITALS: BP 104/80
--- NOTE | 2018-07-28 23:42 | NUR ---
24 HR chart check completed.
--- NOTE | 2018-07-28 23:45 | NUR ---
P-DEPRESSED, CONFUSED, ISOLATIVE I-VERBAL INTERVENTION FOR EMOTIONAL SUPPORT, ACCESS ORIENTATION, ENCOURAGE FLUID INTAKE, ADMINISTER HS MEDICATIONS, MONITOR SLEEP R-PT IS DEPRESSED WITH FLAT AFFECT & LIMITED VERBAL INTERACTIONS. HOPELESS/HELPLESS. ALERT & ORIENTED TO PERSON & PLACE WITH MILD MEMORY DEFICITS & CONFUSION. REFUSED HS SNACK. FLUID INTAKE 150CC FOR SNACK, MOVES ABOUT THE UNIT VIA WHEELCHAIR WITH STAND BY ASSISTANCE FROM STAFF. CONTINENT OF URINE. COMPLIANT TAKING HS SNACK. P-CONTINUE TO MONITOR & PROVIDE PHYSICAL ASSISTANCE & EMOTIONAL SUPPORT NEEDED.
--- NOTE | 2018-07-29 06:11 | NUR ---
PT HAS SLEPT PAST 2245 WITH 2 VERY BRIEF AWAKENINGS.
[2018-07-29 07:29] VITALS: BP 112/69
--- NOTE | 2018-07-29 07:40 | NUR ---
PHYSICAL THERAPY Patient seen this am for therapy visit and was sitting in activity room w/c upon therapist arrival. Patient was pleasant, presenting with flat affect and voices mild R posterior knee pain 3/10. OT product safety technical assistant was also present for observation only during PRESCHOOL ASSOCIATE TEACHER treatment as patient performed seated B LE therex, all planes x 20 reps each to increase LE strength. Patient needed v/c to complete all task and remained in w/c at table under [facility] staff Supervision as breakfast arrived. Will continue per POC as tolerated, total treatment time 13 minutes. Ray Smith, PRESCHOOL ASSOCIATE TEACHER
--- NOTE | 2018-07-29 08:15 | NUR ---
Treatment Plan meeting with Dr. Peña, RN, AT, SW and Regulatory Affairs Portfolio Leader. Plan for discharge at the end of the week. Pt. to return home.
--- NOTE | 2018-07-29 10:35 | NUR ---
Patient alert to person and place with confusion noted. Patient is depressed with flat affect. Patient has limited verbal interaction. ST/LT memory deficits noted. Provided 1:1 with patient for emotional support. Patient compliant with medications without any difficulty. Redirect/reorient when appropriate. Plan to continue to provide 1:1 for emotional support and redirect/reorient when needed and appropriate. Continue to encouarge medication compliance. Q 15 minute safety checks continued and maintained. See [facility] flowsheet for further documentation.
--- NOTE | 2018-07-29 11:53 | NUR ---
AM GROUP/PARACHUTE/REMINISCE PT ATTENDED AND PARTICIPATED IN GROUP. PT MORE INTERACTIVE THAN IN PREVIOUS GROUPS. PT DID NOT ATTEMPT TO LEAVE ONCE AND DID NOT EXPRESS ANY ANXIETY AT THIS TIME. PT WILL CONTINUE TO ATTEND AND PARTICIPATE IN FUTURE GROUP SESSIONS.
--- NOTE | 2018-07-29 13:26 | NUR ---
Shift chart check completed.
--- NOTE | 2018-07-29 14:56 | NUR ---
Met with patient, [facility] residential case manager for pt's children Francia Sr, and [facility] social sciences lecturer Hazel Bermudez. Discussed options for pt's children to be care for while pt is in the hospital. Francia Oliva, and this marketing writer educated pt about foster care vs. pt signing POA, which allows pt's mother to temporarily care for and make decisions for the children. Much discussion took place between pt, Hazel Feldman and this marketing writer. Pt decided to sign the POA papers. franklin Weiss, was present for this.
--- NOTE | 2018-07-29 15:33 | NUR ---
PM GROUP/POPCORN AND A MOVIE PT UNABLE TO ATTEND FIRST PART OF GROUP DUE TO FAMILY MEETING WITH SW. PT ATTENDED SECOND PART OF GROUP AND PARTICIPATED. PT DID GET UP DURING MOVIE TO STRETCH LEGS BY WALKING AROUND. PT DID NOT EXPRESS ANY ANXIETY AT THIS TIME. PT WILL CONTINUE TO ATTEND AND PARTICIPATE IN FUTURE GROUP SESSIONS.
[2018-07-29 20:00] VITALS: BP 108/65
--- NOTE | 2018-07-29 20:16 | NUR ---
24 HR chart check completed.
--- NOTE | 2018-07-29 20:50 | NUR ---
P-DEPRESSED, CONFUSED, ISOLATIVE I-VERBAL INTERVENTION FOR EMOTIONAL SUPPORT, ACCESS ORIENTATION, ENCOURAGE FLUID & FOOD INTAKE, ADMINISTER HS MEDICATIONS, MONITOR SLEEP R-PT IS DEPRESSED WITH FLAT AFFECT & LIMITED VERBAL INTERACTIONS. HOPELESS/HELPLESS. ALERT & ORIENTED TO PERSON & PLACE WITH MILD MEMORY DEFICITS & CONFUSION. REFUSED HS SNACK DESPITE ENCOURAGEMENT. FLUID INTAKE 100CC FOR SNACK, AMBULATORY ON THE UNIT WITH A STEADY GAIT. CONTINENT OF URINE. COMPLIANT TAKING HS MEDICATIONS. P-CONTINUE TO MONITOR & PROVIDE PHYSICAL ASSISTANCE & EMOTIONAL SUPPORT NEEDED.
--- NOTE | 2018-07-30 05:26 | NUR ---
PT HAS SLEPT PAST 2300.
--- NOTE | 2018-07-30 07:05 | NUR ---
PHYSICAL THERAPY Patient seen this am for therapy visit and was sitting in chair at table in activity room upon therapist arrival. OT assistant analyst was present this morning as observation only during FOOD QUALITY TESTER treatment. Patient was pleasant, voicing no new c/o's and transfers sit to stand SBA. Patient ambulates without AD, ad demi in hallway, SBA, demonstrating decreased stride, but increased gait velocity. Patient able to slow down following v/c for a total distance of 155' x 1. Patient also completed several standing balance activities including eyes open / closed, 360 degree turns without LOB, backward walk and single leg stance tolerating R side 4 seconds and L side 2 seconds. Patient returned to chair in activity room and remained under [facility] staff Supervision. Will continue per POC as tolerated, total treatment time 23 minutes. Ray Smith, FIDEL
[2018-07-30 07:44] VITALS: BP 110/71
--- NOTE | 2018-07-30 08:15 | NUR ---
Treatment Plan meeting with Dr. Peña, RN, SW and Underground Drill Operator. Plan for discharge at the end of the week or beginning of next week. Pt. to return home.
--- NOTE | 2018-07-30 09:01 | NUR ---
Spoke with pt's sister Snehal Farnsworth. Snehal shared about her concerns for pt and requested information. This freelance copywriter met with Dr Peña this AM to share Snehal's concerns. After meeting with Dr Peña, this ENGINEERING SUPPLIES SALES-S phoned Snehal and informed her that: side effects of Vraylar can take months to resolve, vision changes can occur as a side effect of Vraylar - Dr Peña's recommendation is that pt. see an opthamologist in the community to rule out any other issues with sight, Dr Peña does not believe pt. is in need of a CAT scan. Snehal voiced understanding.
--- NOTE | 2018-07-30 10:00 | NUR ---
DR. FOLEY AND DR LOZADA IN TO SEE PT
--- NOTE | 2018-07-30 14:08 | NUR ---
Met with pt this afternoon. Pt stated that she is "not feeling that great." When asked to further explain what that meant, pt shrugged her shoulders. Pt spoke of her children of whom she has custody. Discussed pt signing POA document allowing pt's mother to make decisions and care for the children while pt is ill. Reassured pt that she will have the children with her again when pt is feeling better. Pt continues to be slow to respond and displays a flat affect.
--- NOTE | 2018-07-30 14:23 | NUR ---
P: WITHDRAWN, POOR APPETITE HAS DIFFICULTY INTERACTING WITH OTHERS, DOES NOT LIKE TO MAKE EYE CONTACT, ATTEMPTS TO LOOK AWAY FROM PEOPLE WHEN TALKING. PT ALSO DISPLAYING ANXIETY STATING "I HAVE TO BE OUT OF HERE BY 7PM" I: ENCOURAGED INTERACTION WITH GROUP ACTIVITIES, GOT ON SAME LEVEL PATIENT TALKED IN SOFT TONES TO ENCOURAGE INTERACTION. SPOKE WITH PT IN REFERENCE TO HER WANTING TO LEAVE AT 7 PM, WHICH SHE STATED "I DON'T WANT TO BE HERE TONIGHT, I DON'T LIKE THE YELLING OUT AND SCREAMING" UPON INVESTIGATION OF COMMENTS, SEVERAL PATIENTS WERE UP THE PREVIOUS NIGHT TO INCLUDE HER ROOM MATE YELLING OUT AND TALKING LOUDLY. PT ALSO GIVEN SMALL PORTIONS ON PLATE TO HELP DECREASE HER ANXIETY ABOUT MEALS DUE TO SHE APPEARED OVERWHELMED WITH QUANTITY PRESENTED R: PT OPENED UP MORE THE DAY PROGRESSED TO STAFF, MAKING EYE CONTACT, AND DID HAVE INCREASED INTAKE TODAY. PT CONTINUES TO NEED REDIRECTED THAT SHE IS NOW TO HAVE A ROOM TO HERSELF AND THAT SHE IS SAFE ON OUR UNIT. PT DID NOT REPORT TO THIS NURSE A DIRECT PERSON OR PEER INVOLVED. DIRECTOR UPDATED ON PT CONCERNS. PT HAS INCREASED EYE CONTACT WITH STAFF AND HAS BEEN SEEN TALKING WITH PEERS THROUGH OUT THE DAY. P: CONTINUE TO MONITOR 15 MIN CHECKS AND ENCOURAGE INTERACTION WITH STAFF AND PEERS, PT TO CONTINUE TO BE PRESENTED WITH SMALL PORTIONS AT A TIME TO INCREASE ADEQUATE INTAKES THROUGHOUT THE DAY.
[2018-07-30 20:00] VITALS: BP 102/62
--- NOTE | 2018-07-30 21:19 | NUR ---
24 HR chart check completed.
--- NOTE | 2018-07-30 21:31 | NUR ---
P-DEPRESSED, ISOLATIVE I-VERBAL INTERVENTION FOR EMOTIONAL SUPPORT, ACCESS ORIENTATION, ENCOURAGE FLUID & FOOD INTAKE, ADMINISTER HS MEDICATIONS, MONITOR SLEEP R-PT CONTINUES TO BE DEPRESSED WITH FLAT AFFECT & LIMITED VERBAL INTERACTIONS. HOPELESS/HELPLESS. ALERT & ORIENTED TO PERSON & PLACE WITH MILD MEMORY DEFICITS & CONFUSION. POOR EYE CONTACT.REFUSED HS SNACK DESPITE ENCOURAGEMENT. TAKING FLUIDS BETTER. AMBULATORY ON THE UNIT WITH A STEADY GAIT. CONTINENT OF URINE. COMPLIANT TAKING HS MEDICATIONS. P-CONTINUE TO MONITOR & PROVIDE PHYSICAL ASSISTANCE & EMOTIONAL SUPPORT NEEDED. =
--- NOTE | 2018-07-31 05:57 | NUR ---
PT HAS SLEPT PAST 2200.
--- NOTE | 2018-07-31 07:40 | NUR ---
PT AWAKE, ALERT, IN DINING ROOM WITH PEERS.
[2018-07-31 07:43] VITALS: BP 108/65
--- NOTE | 2018-07-31 08:20 | NUR ---
PHYSICAL THERAPY Patient seen this am for therapy visit and was sitting at table in activity room following breakfast upon therapist arrival. U staff present for observation only during OPERATING ENGINEER treatment as patient transfers sit to stand SBA. Patient reports no new c/o's and ambulates without AD, 100'x 1, SBA, demonstrating very slow obinna, decreased stride and minimal B arm swing. Patient also performed seated B LE therex, all planes x 20 reps each without c/o for LE strengthening and returned to quiet room chair under [facility] staff Supervision. Will continue per POC as tolerated, total treatment time 19 minutes. Ray Smith, OPERATING ENGINEER
--- NOTE | 2018-07-31 09:25 | NUR ---
PT IS ISOLATIVE/WITHDRAWN TO SELF AND ROOM. PT ASSESSED FOR ORIENTATION LEVEL, MOOD, AND AFFECT. PT ASSESSED FOR SI/HI. ASSESSED FOR HALLUCINATIONS AND DELUSIONS. ASSESSED FOR SLEEP QUALITY AND APPETITE. PT IS ORIENTED TO PERSON, PLACE AND TIME. PT IS PLEASANT AND COOPERATIVE WITH ASSESSMENT, AFFECT IS FLAT. PT'S VERBAL RESPONSES MINIMAL, GIVING BRIEF "YES OR NO" RESPONSES. DENIES SI/HI. DENIES SADNESS AND DEPRESSED MOOD. OVERTLY APPEARS TO HAVE HOPELESS/DEPRESSED MOOD. DENIES HALLUCINATIONS. NO OVERT S/S OF ATTENDING TO INTERNAL STIMULI. NO OVERT PARANOIA/DELUSIONS PRESENT. PT STATES SHE IS SLEEPING AND EATING, PER OBSERVATION, PT REFUSED BREAKFAST. PT SLEPT PAST 2200. PT IS RESTING QUIETLY IN BED THIS MORNING. PT IS NOT FALL RISK, Q 15 MIN MONITORING MAINTAINED FOR PT SAFETY. WILL CONTINUE TO MONITOR PT'S MOOD AND AFFECT, WILL MONITOR FOR MEDICATION COMPLIANCE. CONTINUE CURRENT TREATMENT PLAN, DR. LOZADA ADDED ZYPREXA 2.5MG AT HS. WILL ENCOURAGE PO INTAKE, AND PARTICIPATION IN GROUP THERAPY/ACTIVITY FOR SOCIALIZATION AND SUPPORT. CONTINUE Q15 MIN MONITORING PER POLICY
--- NOTE | 2018-07-31 09:49 | NUR ---
Treatment Plan meeting with Dr. Peña, RN, SW and Stumper Feller. Plan for discharge next week. Pt. is to return home.
--- NOTE | 2018-07-31 10:52 | NUR ---
The patient has no complaints and is resting comfortably. PREMA VENTURA
--- NOTE | 2018-07-31 11:24 | NUR ---
Met with pt, Dae Feldman medical case worker for pt's children, and Dae Grayson medical case worker for pt. Pt's rent and other bills were needing paid. Renuka reviewed this with pt and assisted pt in writing checks for pt's bills. Pt voiced understanding and was cooperative. Pt continues to be slow to respond displaying a flat affect. Pt told Francia and Renuka that she will never be going home and that she will live at the hospital forever because her "head is broken." All empathized with pt and voiced encouragement. Pt then asked about her children. When she was told that the two youngest were staying with pt's mother Leticia, pt stated that she did not believe that because they were with [facility]. Pt also stated that she was never going to see them again. Phoned pt's mother who confirmed to pt that the children were staying with her. Pt continued to say "No. They are with [facility]." Francia reminded pt that pt had completed a POA that allowed pt's mother to care for the children. Pt voiced remembrance of this but then stated that she signed "sloppy," which made the document unacceptable. Pt was told by Francia that the document is accepted and in use. Pt stated, "No." Before Yony left, Francia informed pt that pt's sister Elisabeth would be visiting pt later today. Pt stated, "No, that won't be happening."
--- NOTE | 2018-07-31 14:13 | NUR ---
The patient has no complaints and is resting comfortably. PREMA VENTURA
--- NOTE | 2018-07-31 14:15 | NUR ---
Shift chart check completed.
[2018-07-31 20:03] VITALS: BP 110/70
--- NOTE | 2018-07-31 21:58 | NUR ---
PT MEDICATION COMPLIANT WITH HS MEDCIATIONS. RETURNED TO ROOM AFTER. RESPS EASY AND EVEN ON ROOM AIR.
--- NOTE | 2018-07-31 23:36 | NUR ---
P-PARANOID DELUSIONS; PT ASKING "IS IT REAL" WHEN THIS RN ADMINISTERED HS MEDICATIONS. PT VOICING SOMATIC S/O RE HER LEGS. PACING ABOUT DINING ROOM TONIGHT. I-REALITY PRESENTED THIS EVENING AND PRN. MEDICATION EDUCATION COMPLETED REGARDING PAIN MEDICATIONS. REDIRECTED TO BED AFTER MEDICATIONS ADMINISTERED. R-PT BECOMES MILDLY AGITATED WITH REALITY PRESENTATION. EASILY REDIRECTED TO BED FOR REST. PT HAS BEEN RESTING IN BED WITH EYES CLOSED. RESPS EASY AND EVEN ON ROOM AIR. P-ENCOURAGE GROUPS, REORIENT, REDIRECT
--- NOTE | 2018-08-01 00:55 | NUR ---
24 HR chart check completed.
--- NOTE | 2018-08-01 04:10 | NUR ---
REDNESS NOTED TO LOWER ABD AREA. NO OPEN AREAS, DRAINAGE, OR FOUL ODOR NOTED. FRANCOIS WC NURSE ON UNIT AND ASSESSED, STATES WILL INFORM RESIDENT AND PROVIDE WC RECOMMENDATIONS.
--- NOTE | 2018-08-01 04:44 | NUR ---
LC BRADEN [id number] Please refer to the physician's history and physical for past medical history, comorbid conditions, and allergies. Diagnosis: BIPOLAR DISORDER Sanchez Score: 22,LOW OR NO RISK WOUND DESCRIPTIONS: Wound Number: 1 Location of the wound: lower abdominal fold Type of wound: fungal Thickness: Partial Size: 9.0cm x 5.5cm x 0.1cm Tunneling: none Undermining: none Sinus Tract: none Presence of Exudate: none Amount: None Color: Red Odor: None Periwound Skin Appearance: Normal Wound edges: approximated Pain (associated with wound): none at time of assessment How does patient state this happened? pt unsure when this happened Surface the patient is resting on: Proform SKIN PREVENTION RECOMMENDATION: 1. Pressure redistribution support surface as appropriate 2. Elevate heels 3. Remove boots/TEDS every shift and reapply 4. Head of bed 30 degrees as tolerated 5. Assess nutrition and hydration 6. Manage moisture 7. Avoid the use of containment devices while in bed 8. Use absorptive products on surfaces limit layers of linens on bed 9. Turn and reposition every 1-2 hours in bed and every 1 hour in chair as tolerated 10. Weight shifts every 15 minutes while up in chair 11. Offloading with pillows or device to keep heels elevated off bed 12. Monitor skin at least every shift 13. Inspect under medical devices twice a day WOUND TREATMENT RECOMMENDATIONS: Cleanse lower abdominal folds with soap and water and apply nystatin powder every 12 hours.
--- NOTE | 2018-08-01 05:44 | NUR ---
PT SLEPT PAST 2315 UNTIL 0300. PT WENT BACK TO SLEEP AT APPROXIMATELY 0430 WITHOUT AWAKENING.
--- NOTE | 2018-08-01 05:49 | NUR ---
PT UP IN DINING ROOM AT THIS TIME.
--- NOTE | 2018-08-01 07:20 | NUR ---
PHYSICAL THERAPY Patient seen this am for therapy visit and was sitting in activity room chair upon therapist arrival. Patient was pleasant this morning voicing B calf pain / soreness. Patient transfers sit to stand SBA and ambulates 100'x 2, SBA, no AD, demonstrating slow, steady obinna. Patient still very cautious during 90/180 turns and every once in awile will reach for hallway handrail support. Patient also demonstrates bouts of unsteady gait secondary to NBOS and needed v/c to widen ZULLY with cue for "BIG STEPS", which helped to improve her stride temporarily. Patient returned to her w/c in activity room awaiting breakfast under [facility] staff Supervision. Will continue per POC as tolerated, total treatment time 16 minutes. Ray Smith, MUSICAL INSTRUMENT MAKER
[2018-08-01 07:42] VITALS: BP 111/63
--- NOTE | 2018-08-01 08:15 | NUR ---
Treatment Plan meeting with Dr. Peña, RN, SW and [facility] Cashier. Plan for discharge at the end of Next week. Dr. Peña continues to make medication adjustments. Patient is from home and plan is for patient to return home.
[2018-08-01 09:10] LABS: NEURONTIN (GABAPENTIN) 3.9 ug/mL (4.0-16.0)
--- NOTE | 2018-08-01 10:33 | NUR ---
Dr. Branch notified of wound care recommendations.
--- NOTE | 2018-08-01 11:30 | NUR ---
ON UNIT TO ASSESS PT.
--- NOTE | 2018-08-01 13:23 | NUR ---
Met with pt this AM. Pt continues to be slow to speak and displays a flat affect. Pt complained of leg pain but then stated that she is thinking that walking will help the pain. Pt stated that she has no appetite and that her head is still "broken." Offered to spend more individual time with pt. Pt stated, "It won't help. My head will still be broken." Support and encouragement provided to pt.
--- NOTE | 2018-08-01 14:29 | NUR ---
P: PT ALERT TO PERSON ONLY, UNABLE TO STATE WHERE SHE IS OR WHAT YEAR IT IS. PT CALM, MOOD IS DEPRESSED AND HOPELESS/HELPLESS. PT RESTLESS, PACING THROUGHOUT THE SHIFT. PT ISOALTIVE TO SELF, LITTLE TO NO INTERACTION NOTED WITH STAFF OR PEERS I: PT ENCOURAGED TO PARTICIPATE IN GROUPS/ACTIVITIES, ENCOURAGED TO SOCIALIZE WITH STAFF AND PEERS, PT ENCOUARGED TO TAKE REST PERIODS AND SIT DOWN, REORIENTED PT TO PLACE,TIME AND SITUATION R: PT CONTINUES TO BE ISOLATIVE TO SELF, WHEN ASKED TO SIT DOWN STATES "I CAN'T IT HURTS I DON'T WANT TO" P: CONTINUE TO ENCOURAGE PT TO PARTICIPATE IN GROUPS/ACTIVITIES, ENCOURAGE SOCIALIZATION, ENCOURAGE REST, MONITOR PT BEAHVIORS ON Q15 MIN SAFETY CHECKS, RE-ORIENT NEEDED PT MED COMPLIANT WITHOUT DIFFICULTY. NO HALLUCINATIONS OR DELUSIONS NOTED. PT DENIES ANY SUICIDAL THOUGHTS. PT AMBUALTORY THROUGHOUT UNIT, GAIT SLOW AND STEADY. PT CONTINENT OF BOWEL AND BLADDER.
[2018-08-01 20:00] VITALS: BP 113/77
--- NOTE | 2018-08-01 20:56 | NUR ---
P-PT ALERT AND VERBAL. ABLE TO MAKE MOST NEEDS AND WANTS KNOWN. VOICING PARANOID DELUSIONS THAT SHE IS "NOT ON THE LIST" AND "I'M NOT SUPPOSED TO BE HERE WITH HER AND HER." ORIENTED TO SELF ONLY THIS SHIFT, OTHERWISE CONFUSED. SOMATIC C/O RE: CHRONIC LEG PAIN THAT IS UNRELIEVED WITH ANY PHARMOCOLOGICAL OR NON PHARM INTERVENTIONS. I-MEDICATION EDUCATION PROVIDED. REALITY PRESENTATION GIVEN. FREQUENT REORIENTATION AND NEEDED. EMOTIONAL SUPPORT. ASSESSED PT FOR SI/HI, DEPRESSION, AND ANXIETY. R-PT DENIES ANY SI/HI. DENIES ANY MENTAL ILLNESS OR DISEASE. DENIES ANY DEPRESSION OR ANXIETY. HOWEVER, AFFECT REMAINS OVERTLY BLUNTED AND PT HAS LIMITED INTERACTIONS WITH PEERS OR STAFF UNLESS INITIATED. ANXIOUS OVERTONES NOTED AT PT ATTEMPTS TO PACE UNIT AND LEG NOTED TO CONSISTANTLY BOUNCE WHILE SITTING. MOST ANWSERS NONSENSICAL TO QUESTIONS ASKED. CONTINUES TO REPEAT THAT SHE IS NOT SUPPOSED TO BE HERE WITH PEERS BECAUSE SHE IS "NOT ON THE LIST." UNRECEPTIVE TO REALITY PRESENTATION OR RE-ORIENTATION. MEDICATION COMPLIANT WITHOUT DIFFICULTY. P-CONTINUE TO ENCOURAGE PEER INTERACTIONS, ENCOURAGE PT TO ATTEND AND PARTICIPATE IN GROUP THERAPY, PRESENT REALITY AND REORIENT NEEDED.
--- NOTE | 2018-08-01 22:41 | NUR ---
PT FIXATED ON THE FACT THAT SHE IS NOT ON "THE LIST." INCREASING ANXIETY AND RESTLESSNESS. AMBULATING WITH SLOW AND UNSTEADY GAIT. ASSISTED TO BED AT THIS TIME AND ENCOURAGED TO REST. LIGHTS OFF FOR DESTIMULATION. BED ALARM ON AND FUNCTIONING. WILL CONTINUE TO MONITOR.
--- NOTE | 2018-08-01 23:44 | NUR ---
PT SLEEPING IN BED AT THIS TIME. RESPS EASY AND EVEN ON ROOM AIR.
--- NOTE | 2018-08-02 03:28 | NUR ---
24 HR chart check completed.
--- NOTE | 2018-08-02 06:01 | NUR ---
PT SLEPT 1 HR TOTAL THIS SHIFT.
--- NOTE | 2018-08-02 07:15 | NUR ---
PHYSICAL THERAPY Patient seen this am for therapy visit and was sitting at table in activity room upon therapist arrival. Patient reports no c/o's pain this morning and OT social work assistant was present for observation only during VISUAL SUPERVISOR treatment. Patient demonstrated bouts of increased confusion, with repeated mumbling of "I'm not on the list" and "I shouldn't be on this floor". Patient was redirected several times to focus on therapy task, but only tolerated short sessions with v/c's needed. Patient transfers and ambulates SBA, 100' x 1, demonstrating slow, but steady gait pattern, no LOB. Patient returned to activity room chair and remained under [facility] staff Supervision. Will continue per POC as tolerated, total treatment time 13 minutes. Ray Smith, VISUAL SUPERVISOR
--- NOTE | 2018-08-02 07:52 | NUR ---
Pt approached this publicity writer in the [facility] room this AM and stated, "I'm not supposed to be here. My name's not on the list. I'm not supposed to be in this behavioral unit." Empathized with pt and reassured her that she was supposed to be in [facility]. Pt stated again that she was not supposed to be here and that she is not on the list. Showed pt her demographic sheet to confirm pt is on the list. Pt then stated, "No, that's not me. I'm not supposed to be here." Pt asked how she got here. When this publicity writer explained this to pt, pt stated, "No, that's not right. I'm not supposed to be here." Pt then stated that she was going to be by [place]. Reassured pt that pt is safe and nothing will happen to her here. Pt again stated, "No, that's not right." Attempted numerous times to direct pt to her breakfast, as it appeared to be untouched. Pt stated that no one is listening to her. Reassured pt that this publicity writer was indeed listening to her and that pt's concerns would be discussed with Dr Peña. Pt stated, "No, that's not right. No one is listening to me." Pt then sat at the table but showed not interest in her breakfast.
[2018-08-02 08:07] VITALS: BP 110/79
--- NOTE | 2018-08-02 10:18 | NUR ---
ON UNIT TO ASSESS PT, UPDATE PROVIDED.
--- NOTE | 2018-08-02 10:29 | NUR ---
Pt continues to be psychotic. She is believing that she doesn't belong in [facility] because she is not on the list and is believing that she will be by tonight. Pt is asking this screenplay writer to help her get out of the unit. Pt is not satisfied with any reply given. She is unable to be redirected. Pt is making minimal eye contact and is displaying a flat affect.
--- NOTE | 2018-08-02 11:12 | NUR ---
PT INCREASINGLY ANXIOUS AND AGITATED. PT FIXATED STATING "IM NOT SUPPOSED TO BE ON THE 3RD FLOOR, THE MABULANCE ABDI DROPPED ME OFF AT THE WRONG FLOOR." PT UP AND DOWN OUT OF CHAIR, GAIT UNSTEADY. PT REFUSING TO SIT DOWN AND REST. PT PLACED IN GERICHAIR IN LOW STIMULATION ENVIRONMENT CALM. PT BEHAVIORS CONTINUE. STAFF IS UNABLE TO REDIRECT OR RE-ORIENT. PT INCREASINGLY AGITATED AND ANXIOUS. PT MEDICATED WITH IM ATIVAN 1 MG PRN PER ORDERS.
--- NOTE | 2018-08-02 12:00 | NUR ---
ATIVAN EFFECTIVE. PT SITTING IN DINING ROOM EATING LUNCH.
--- NOTE | 2018-08-02 12:36 | NUR ---
Treatment Plan meeting with Dr. Peña, RN, SW and Lgsw. Plan for discharge Next week. Plan is for Pt. to return home when Stable.
--- NOTE | 2018-08-02 16:17 | NUR ---
AND DR. WAGONER ON UNIT TO ASSESS PT, UPDATE PROVIDED.
[2018-08-02 20:00] VITALS: BP 102/65
--- NOTE | 2018-08-02 21:40 | NUR ---
Patient alert to person and place with confusion noted. Patient is depressed with flat affect. Patient has limited verbal interaction. ST/LT memory deficits noted. Provided 1:1 with patient for emotional support. Patient compliant with medications without any difficulty. Redirect/reorient when appropriate. Patient was unable to redirect at this time. Plan to continue to provide 1:1 for emotional support and redirect/reorient when needed and appropriate. Continue to encouarge medication compliance. Q 15 minute safety checks continued and maintained. See [facility] flowsheet for further documentation.
--- NOTE | 2018-08-02 21:45 | NUR ---
Patient had increased anxiety and was unable to redirect. All non-pharmocological interventions unsuccessful. Medicated with Ativan po prn as per order for increased anxiety/agitation. Will continue to monitor behavior.
--- NOTE | 2018-08-03 00:55 | NUR ---
24 HR chart check completed.
--- NOTE | 2018-08-03 04:54 | NUR ---
Patient slept approx. 6 hours throughout shift. Q 15 minute safety continued and maintained.
[2018-08-03 07:45] VITALS: BP 102/56
--- NOTE | 2018-08-03 11:48 | NUR ---
AM GROUP/EXERCISE/GAMES PT ATTENDED BUT DID NOT PARTICIPATE. PT DID PARTICIPATE IN SOME EXERCISES BUT THEN CHOSE NOT TO PARTICIPATE IN ANYTHING ELSE. PT DID NOT EXPRESS ANY ANXIETY BUT QUIET AND KEPT TO SELF. PT WILL CONTINUE TO ATTEND GROUP AND BE ENCOURAGED TO PARTIUCIPATE IN FUTURE GROUP ACTIVITY'S.
--- NOTE | 2018-08-03 13:35 | NUR ---
FAMILY APPROACHED THIS NURSE AFTER VISITING HOURS, AND ADVISED THIS NURSE THAT PT WAS TELLING THEM THAT SHE IS AFRAID OF THAT BIG LADY WHO IS GOING TO HURT HER." FAMILY WAS QUESTIONING THIS STAFF MEMBER REGARDING PUBLIC WEIGHER STAFF MEMBERS. I ADVISED THAT WE ARE UNAWARE OF ANY ISSUES AND WHEN PT WAS QUESTIONED SHE REFUSED TO ELABORATE AND WAS SPEAKING NON-SENSICAL. WILL CONTINUE TO MONITOR.
--- NOTE | 2018-08-03 16:40 | NUR ---
PM GROUP/GIOVANY LUCAS/LEISURE SKILLS PT ATTENDED GROUP BUT CONTINUES TO CHOOSE NOT TO PARTICIPATE. PT DID NOT EXPRESS ANY ANXIETY AT THIS TIME AND WILL CONTINUE TO ATTEND AND PARTICIPATE IN FUTURE GROUP SESSIONS.
[2018-08-03 20:00] VITALS: BP 101/52
--- NOTE | 2018-08-03 20:38 | NUR ---
Patient had increasing anxiety with yelling out and unable to redirect/reorient at this time. All non-pharmacological interventions unsuccessful. Medicated with Ativan po prn as per orders for increased anxiety/agitation. Will monitor behavior.
--- NOTE | 2018-08-03 21:29 | NUR ---
Patient alert to person and place with confusion noted. Patient is depressed with flat affect. Patient has limited verbal interaction. ST/LT memory deficits noted. Provided 1:1 with patient for emotional support. Patient compliant with medications without any difficulty. Redirect/reorient when appropriate. Patient was unable to redirect at this time. Patient is more calm after Ativan was administered. Plan to continue to provide 1:1 for emotional support and redirect/reorient when needed and appropriate. Continue to encouarge medication compliance. Q 15 minute safety checks continued and maintained. See [facility] flowsheet for further documentation.
--- NOTE | 2018-08-04 00:10 | NUR ---
24 HR chart check completed.
--- NOTE | 2018-08-04 05:29 | NUR ---
Patient slept approx. 7 1/2hours throughout shift. Q 15 minute safety continued and maintained.
[2018-08-04 07:29] VITALS: BP 108/59
--- NOTE | 2018-08-04 09:51 | NUR ---
DR. CURRY ON FLOOR TO ASSESS PATIENT.
--- NOTE | 2018-08-04 10:49 | NUR ---
P: Patient is paranoid and preoccupied with the thought that she does not belong here on this unit. Patient stating "I only have this one wrist band that the paramedics gave me and they made a mistake taking me here. I am not on your list to be on this floor. I am not suppose to be on this mental health unit". Patient is alert to person only. ST/LT memory deficits noted. Patient is withdrawn and does not interact with others unless spoken with first. Patient is participating in group activities but does not interact much until spoken to. I: 1:1 interaction with emotional support provided. Showed patient her name on our list and informed patient of our unit. Talked with patient about her coming onto the floor and why she is here. Attempt to reorient patient to reality. Reorient patient when confusion is noted. Provide medications on time with education on each med. Encourage to interact with peers and staff. Encourage to participate and attend group activities for socialization and emotional support. Relaxation techniques taught to patient; Thought stopping techniques tought; Diversional activities provided. R: Patient continues to believe that she does not belong here. Patient did calm down after showing that her name is on our list. Reorientation is ineffective. Reality reorientation is ineffective. Remains preoccupied with not belonging her. Redirection effective and calms down for a little bit. Patient is participating in group and only talks when spoken to first. Medication compliant with no difficulties. Pt not using relaxation, thought stopping techniques, and uses diversional activities intermittently. P: Continue to monitor patient for paranoid thoughts of not being on the floor. Redirect patient to reality often when thoughts occur. Reorient when confusion is noted. 1:1 interaction when necessary. Provide medications prescribed by physician on time and with education. Offer diversional activities, relaxation and thought stopping techniques. Q15 minute checks maintained for safety.
--- NOTE | 2018-08-04 12:30 | NUR ---
Shift chart check completed.
--- NOTE | 2018-08-04 17:05 | NUR ---
Patient has become increasingly agitated. Coming up to staff and stating that she should not be here and because she is not on the list then they are going to kill her. Patient stating that she needs to be taken off this floor and get out of here. Patient wandering down to the end of the cm and trying to get out the door. Elopment precautions put in place. Showed patient that her name is on our census sheet and she is on our floor. While giving patient her evening medications, showed patient that her name is in our computers and she is on our floor. Reorient patient to reality, ineffective. Diversional activities provided, tried to get patient to go into a low stimuli environment, relaxation techniques provided; all ineffective. Patient continues to believe that she is in the wrong place. With the patient being increasingly agitated and attempting to elope, Ativan 1mg PO given per prn order at this time. Will monitor for effectiveness.
--- NOTE | 2018-08-04 18:00 | NUR ---
PATIENT HAS CALMED DOWN SOME SINCE PRN WAS GIVEN. PATIENT IS STILL STATING THAT SHE IS NOT TO BE HERE. HOWEVER, PATIENT IS NOT RESTLESS AND PACING ANYMORE. PATIENT IS SITTING AND TALKING WITH STAFF.
[2018-08-04 20:00] VITALS: BP 109/71
--- NOTE | 2018-08-04 22:27 | NUR ---
24 HR chart check completed.
--- NOTE | 2018-08-04 23:36 | NUR ---
P-DEPRESSED, ISOLATIVE, PARANOID I-VERBAL INTERVENTION FOR EMOTIONAL SUPPORT, ACCESS ORIENTATION, ADMINISTER HS MEDICATIONS, MONITOR SLEEP, MAINTAIN ELOPEMENT PRECAUTIONS R-PT IS DEPRESSED WITH FLAT AFFECT. LIMITED & GUARDED INTERACTIONS WITH STAFF. & PEERS. WHEN SPEAKING WITH STAFF SHE APPEARS TO BE SUSPECIOUS. DID STATE THAT SHE WASNT A PT HERE. WHEN PRESENTED WITH REALITY SHE HAD NO COMMENT. ALERT & ORIENTED TO PERSON & PLACE STATING SHE IS IN A HOSPITAL. UNABLE TO STATE DATE. POOR EYE CONTACT. ATE HS SNACK. SAT IN THE DINING ROOM WITH PEERS BUT REMAINED ISOLATIVE TO HERSELF. AMBULATORY WITH A STEADY GAIT. ELOPEMENT PRECAUTIONS CONTINUE & PT HAS MADE NO ATTEMPTS TO EXIT SEEK. COMPLIANT TAKING HS MEDICATIONS. P-CONTINUE TO MONITOR & PROVIDE PHYSICAL ASSISTANCE & EMOTIONAL SUPPORT NEEDED.
--- NOTE | 2018-08-05 05:39 | NUR ---
PT HAS SLEPT PAST 2144
--- NOTE | 2018-08-05 07:05 | NUR ---
PHYSICAL THERAPY Patient seen this am for therapy visit and was sitting in activity room at table upon therapist arrival. Patient reports B LE discomfort and needed to be redirected several times throughout treatment due to repeated statements regarding her wrist ID band and not supposed to be on this floor. U staff was present for observation only during RELATIONSHIP SPECIALIST visit this morning as patient transfers sit to stand, SBA and ambulates SBA, 200'x 1, demonstrating very slow, steady obinna. Patient able to complete 90 / 180 turns without LOB, but during 360 turn, LOB x 1. Patient also fatigues > 150 feet and returned to activity room chair under [facility] staff Supervision. Will continue per POC as tolerated, total treatment time 14 minutes. Ray Smith, RELATIONSHIP SPECIALIST
[2018-08-05 08:06] VITALS: BP 115/71
--- NOTE | 2018-08-05 08:15 | NUR ---
Treatment Plan meeting with Dr. Peña, RN, AT, SW and Coin Purse Framer. Plan for discharge at the end of the week. Pt. to return home.
--- NOTE | 2018-08-05 09:55 | NUR ---
As soon as pt saw this teletypewriter operator this AM at approximately 07:40, pt came to this teletypewriter operator and stated, "You gotta get me out of here. I don't belong here. My name is not on the list. Dr Peña is not my doctor." Reassured pt and insured pt that Dr Peña would meet with pt this AM.
--- NOTE | 2018-08-05 10:11 | NUR ---
DR. CURRY ON FLOOR TO ASSESS PATIENT, UPDATE PROVIDED.
--- NOTE | 2018-08-05 11:13 | NUR ---
P: Paranoid and Preoccuppied. Patient stating that she is on the wrong floor and that her wrist band is wrong. Isolative to self. I: 1:1 interaction with emotional support provided. Reassurance that patient is on the right floor, showed patient her name. Redirect patient to reality. Offer diversional activities to get patients mind on something else. Relaxation techniques teaching. Encourage patient to participate in group therapies for socialization and emotional support. Encourage to interact with peers and staff. Provide medications on time with education on each med. R: Redirection is ineffective at times. Patient is participating in group therapies, only speaks to others when spoken to first. Patient sitting in the dining room with other peers and every once in awhile will come up to staff stating that she is on the wrong floor. Patient remains isolative to herself and only talks to others when spoken to first. Patient is medication compliant with no difficulties. Patient is eating, drinking, and sleeping adequately. P: Continue to assess patient for paranoid thoughts. Reassure patient that she is in the right place and present reality when paranoia is present. Encuorage patient to participate in group therapies for socialization and emotional support. Involve patient in conversations for socialization when patient is isolating herself. Provide medications prescribed by physiciam on time with education. Q15 minute checks maintained for safety.
--- NOTE | 2018-08-05 11:58 | NUR ---
AM GROUP/REMINISCING AND SOCIALIZING PT CHOSE NOT TO ATTEND MORNING GROUP THERAPY. PT WAS GREETED AND STATED, "I DON'T BELONG HERE" PT WILL BE ENCOURAGED TO ATTEND AFTERNOON GROUP.
--- NOTE | 2018-08-05 13:28 | NUR ---
Shift chart check completed.
--- NOTE | 2018-08-05 14:04 | NUR ---
Occupational Therapy evaluation completed on 3 with full eval to follow. PRecautions include 3 N unit precautions, unsteady in standing w/ loss of balance, fall risk,paranoid delusions but not during this evaluation, low complexity level 30685 via chart review, testing and evaluation. Recommend OT per pOC and if goals unmet consider SNF to enable max safety and independence. Thank you for this referral. Elina Bolton OTR/L
--- NOTE | 2018-08-05 15:36 | NUR ---
PM GROUP/LEISURE INTERESTS PT ATTENDED GROUP BUT REFUSED ALL ACTIVITIES OFFERED. PT WAS CONTENT TO SIT AND WATCH OTHERS. PT DID LEAVE ROOM A FEW TIMES BUT RETURNED. PT EXHIBITED SOME ANXIETY BY STATING, "I DON'T BELONG HERE". PT WAS EASILY REDIRECTED.
[2018-08-05 20:00] VITALS: BP 115/71; BP 131/78
--- NOTE | 2018-08-05 20:57 | NUR ---
EVENING/CRAFTS/MUSIC PT CHOSE NOT TO ATTEND OR PARTICIPATE IN GROUP BUT TO REMAIN IN BED. PT WILL CONTINUE TO BE ENCOURAGED TO ATTEND AND PARTICPATE IN FUTRUE GROUP SESSIONS.
--- NOTE | 2018-08-05 23:05 | NUR ---
24 HR chart check completed.
--- NOTE | 2018-08-05 23:22 | NUR ---
P-DEPRESSED, ISOLATIVE, PARANOID I-VERBAL INTERVENTION FOR EMOTIONAL SUPPORT, ACCESS ORIENTATION, ADMINISTER HS MEDICATIONS, MONITOR SLEEP, MAINTAIN ELOPEMENT PRECAUTIONS R-PT IS DEPRESSED WITH FLAT AFFECT. LIMITED & GUARDED INTERACTIONS WITH STAFF. & PEERS. SHE CONTINUES TO BE SUSPICIOUS. RECEIVED A PHONE CALL FROM HER SISTER ALEX & WAS OVERHEARD TELLING HER SISTER, "THEY DIDNT ADMIT ME. I DONT HAVE A BED. IM GETTING FAKE MEDICINE. THEY THINK IM AN INTRUDER & IM GOING TO PRISON." UNRECEPTIVE TO PRESENTATION OF REALITY. ALERT & ORIENTED TO PERSON, PLACE & TIME & BRANDON IS PRESIDENT. UNRECEPTIVE TO HER SITUATION. POOR EYE CONTACT. ATE HS SNACK. SAT IN THE DINING ROOM WITH PEERS BUT REMAINED ISOLATIVE TO HERSELF. AMBULATORY WITH A STEADY GAIT. ELOPEMENT PRECAUTIONS CONTINUE & PT HAS MADE NO ATTEMPTS TO EXIT SEEK. COMPLIANT TAKING HS MEDICATIONS. P-CONTINUE TO MONITOR & PROVIDE PHYSICAL ASSISTANCE & EMOTIONAL SUPPORT NEEDED.
--- NOTE | 2018-08-06 05:20 | NUR ---
PT HAS SLEPT PAST 013
--- NOTE | 2018-08-06 07:00 | NUR ---
PHYSICAL THERAPY Patient seen this am for therapy visit and was siiting on EOB following OT radha treatment upon therapist arrival. OT jfsistant was present for observation only during TECHNOLOGY RISK INTERN vist this monrning as patient voiced no new c/o's at this time. Patient presented with flat affect and body language demonstrating increased depression. Patient made repeated remarks of not being on "the list" and not sure how she got on "this floor". Patient transfers SBA and ambulates SBA, 150'x 1, demonstrating very slow obinna. Patient needed MAX encouragement to complete all task this session, including eyes open / closed with no LOB, backward walk and 360 degree turns with very cautious step sequence. Patient returned to activity room chair awaiting breakfast under [facility] staff Supervision. Will continue per POC as tolerated, total treatment time 14 minutes. Ray Smith, TECHNOLOGY RISK INTERN
--- NOTE | 2018-08-06 07:20 | NUR ---
OT NOTE Pt was seen this A.M. 1:1 for 12 minute OT session with FIXED INTEREST DEALER and nursing staff present for observation only. Upon arrival pt was sitting upright on the EOB. pt identified by name and . Throughout entire session pt was repeating "I am not on the list, I am not suppose to be here right now." Pt completed sit to stand from bed level with CGA for safety. Functional mobility completed into the bathroom with CGA. There she transferred on/off standard commode with SBA and use of grab bar for UE support. Pt then stood sink side while washing her hands with SBA. Challenged pt's dynamic standing tolerance needed for increased I in self care tasks and functional transfers. Pt was able to tolerate aprox 4 minutes at a time before sitting due to fatigue. Pt was left sitting upright in the dining room under U staff supervision. Continue with rec D/C plan to LTC. MOISES Rosas/Elif
[2018-08-06 07:43] VITALS: BP 120/70
--- NOTE | 2018-08-06 08:00 | NUR ---
Treatment Plan meeting with Dr. Peña, RN, AT, SW and Blanket Winder Operator. Plan for discharge next week. Pt. to return home.
--- NOTE | 2018-08-06 10:20 | NUR ---
DR. CURRY ON FLOOR TO ASSESS PATIENT. NOTIFIED OF PATIENT REFUSING TO TAKE MEDICATIONS AT THIS TIME.
--- NOTE | 2018-08-06 11:39 | NUR ---
AM GROUP/EXERCISE PT CHOSE NOT TO ATTEND MORNING GROUP THERAPY. PT DID ENTER DAY ROOM AND SIT AND OBSERVE ABOUT HALF WAY THROUGH BUT DID NOT PARTICIPATE.
--- NOTE | 2018-08-06 12:35 | NUR ---
Shift chart check completed.
--- NOTE | 2018-08-06 13:32 | NUR ---
P: PATIENT KEEP STATING THAT SHE DOES NOT BELONG HERE AND SHE IS ON THE WRONG FLOOR; PATIENT BELIEVES THAT HER WRIST BAND IS WRONG AND SHE SHOULD BE SOMEWHERE ELSE, IT WAS NOT SHOWING HER THAT SHE WAS ON THE RIGHT FLOOR; BELIEVES THAT SHE IS GOING TO BE ARRESTED. REDIRECTION AND REALITY ORIENTATION IS INEFFECTIVE. NONCOMPLIANT WITH MEDICATIONS, IT TOOK UNTIL AFTERNOON FOR THE PATIENT TO TAKE HER MEDS. PATIENT STATING THAT HER MEDICATIONS ARE FAKE AND THEY ARE NOT HERS BECAUSE SHE IS ON THE RIGHT FLOOR. PATIENT REFUSING TO EAT OR DRINK. I: 1:1 INTERACTION WITH EMOTIONAL SUPPORT PROVIDED. TRY TO GET PATIENT TO EXPLAIN WHY SHE IS FEELING SO PARANOID AND PREOCCUPIED ON THESE THOUGHTS. PRESENT REALITY FREQUENTLY EXPLAINING THAT SHE WILL NOT BE ARRESTED AND THAT SHE IS ON THE RIGHT FLOORS. PROVIDED MEDICATIONS ON TIME AND WITH EDUCATION, EXPLAINED THE IMPORTANCE OF TAKING MEDICATIONS. FREQUENTLY EDUCATED ON PATIENTS MEDICATIONS AND ATTEMPTS TO HAVE PATIENT TAKE HER MEDS. ORIENT PATIENT FREQUENTLY TO WHERE SHE IS AND HOW SHE GOT HERE. FREQUENTLY OFFER FOOD AND FLUIDS. ENCOURAGE PATIENT TO PARTICIPATE IN GROUP THERAPIES FOR SOCIALIZATION AND EMOTIONAL SUPPORT. ENCOURAGE TO INTERACT WITH PEERS AND STAFF. HAD A NEW WRIST BAND PRINTED OUT, PUT WHERE THE PATIENT IS LOCATED AND THAT SHE IS AT [facility]. OFFERED RELAXATION TECHNIQUES, COPING SKILLS, AND DIVERSIONAL ACTIVITIES. R: PATIENT REFUSED TO TELL WHY SHE IS FEELING PARANOID AND PREOCCUPIED ON THESE THOUGHTS. PATIENT STATING THE SAME STATEMENTS OVER AND OVER. PATIENT REFUSED TO TAKE HER MEDICATIONS CLEAR UP UNTIL THIS NURSE GOT HER A NEW WRIST BAND AND PUT WHERE SHE WAS FROM ON IT. PATIENT SEEMED TO USE THE WRIST BAND A REMINDER OF WHERE SHE IS AT. PATIENT STILL BELIEVES THAT SHE IS GOING TO BE ARRESTED. EVEN THOUGHT THE PATIENT TOOK HER MEDICATIONS, SHE STATED AFTER TAKING THEM THAT THEY WERE STILL FAKE. PATIENT PARTICIPATING IN GROUP AT TIMES BUT NOT INTERACTING WITH OTHERS. WHEN ENGAGING IN CONVERSATION SHE WILL TALK ABOUT HER PARANOID THOUGHTS. PATIENT ONLY ATE A FEW BITES OF PUDDING WITH HER LUNCH, HAS REFUSED ANYTHING ELSE. REFUSES FOOD AND FLUIDS WHEN OFFERED TO HER. PT REFUSED TO USE ANY COPING SKILLS, RELAXATION TECHNIQUES, OR DIVERSIONAL ACTIVITIES. PT STATED WHEN TAUGHT THESE THINGS "WELL I DONT KNOW, I AM GOING TO BE ARRESTED". P: WHEN PARANOID THOUGHTS OCCUR WILL HAVE PATIENT LOOK AT HER WRIST BAND TO REORIENT HER. USE REDIRECTION AND REORIENTATION OFTEN WHEN PARANOID THOUGHTS ARE NOTED. ENCOURAGE TO USE COPING SKILLS, RELAXATION TECHNIQUES, AND DIVERSIONAL ACTIVITIES OFTEN. PROVIDE MEDICATIONS ON TIME PRESCRIBED BY PHYSICIAN WITH EDUCATION ON THE IMPORTANCE OF TAKING HER MEDS FOR HER INDIVIDUAL CASE. FREQUENTLY ENCOURAGE PATIENT FOOD AND FLUIDS OFTEN, EXPLAIN THE IMPORTANCE OF GOOD NUTRITION AND HYDRATION. ENCOURAGE TO PARTICIPATE AND INTERACT IN GROUP THERAPIES FOR SOCIALIZATION AND EMOTIONAL SUPPORT. 1:1 INTERACTION WITH EMOTIONAL SUPPORT WHEN NECESSARY. Q15 MINUTE CHECKS MAINTAINED FOR SAFETY.
--- NOTE | 2018-08-06 14:17 | NUR ---
Pt met with this radio news writer 3 times today. Each time pt stated that she doesn't belong in the U and that she was going to residential. Pt stated that she is not on the list like the others are. Reassured pt each time and confirmed that pt was to be in the U. Pt continues to disagree. Empathized with pt and additional reassurance provided.
--- NOTE | 2018-08-06 15:42 | NUR ---
PM GROUP/ART AND MUSIC PT ATTENDED AFTERNOON GROUP BUT CHOSE NOT TO PARTICIPATE. PT DOES NOT SOCIALIZE, ONLY SITS AND OBSERVES. PT GOT UP ABRUPTLY AND WHEN QUESTIONED STATED, "THEY ARE COMING TO TAKE ME TO HALF-WAY BECAUSE THEY THINK THAT I BROKE IN HERE." PT WAS REDIRECTED AND DRAWN INTO CONVERSATION WITH PEERS WHO REASSURED HER.
[2018-08-06 20:00] VITALS: BP 133/69
--- NOTE | 2018-08-06 21:29 | NUR ---
Patient alert to person and place with confusion noted. Patient is depressed with flat affect. Patient has limited verbal interaction. ST/LT memory deficits noted. Provided 1:1 with patient for emotional support. Patient compliant with medications without any difficulty. Redirect/reorient when appropriate. Plan to continue to provide 1:1 for emotional support and redirect/reorient when needed and appropriate. Continue to encouarge medication compliance. Q 15 minute safety checks continued and maintained. See [facility] flowsheet for further documentation.
--- NOTE | 2018-08-07 00:36 | NUR ---
24 HR chart check completed.
--- NOTE | 2018-08-07 05:44 | NUR ---
Patient slept approx. 4 1/2 hours throughout shift. Q 15 minute safety checks continued and maintained.
--- NOTE | 2018-08-07 07:05 | NUR ---
PHYSICAL THERAPY Patient seen this am for therapy visit and was sitting in activity room chair at table watching TV with fellow peers upon therapist arrival. OT asssitant was present for observation only during NOODLE PRESS OPERATOR visit as patient reports c/o of B LE pain / stiffness, 09/09. Patient states she has had this LE pain for a few days now and seems to bother her more when standing for prolonged periods of time. Patient performed seated B LE therex, all planes, x 20 reps each to increase LE strength without c/o and remained seated at table in activity room under [facility] staff Supervision. Will continue per POC as tolerated, total treatment time 14 minutes. Ray Smith, NOODLE PRESS OPERATOR
[2018-08-07 08:00] VITALS: BP 113/76
--- NOTE | 2018-08-07 08:00 | NUR ---
Treatment Plan meeting with Dr. Peña, RN, AT, SW and Shop Service Technician. Plan for discharge Next week. PASRR will need completed for possible SNF/LTC placement.
--- NOTE | 2018-08-07 10:25 | NUR ---
, AND ON UNIT TO SEE PT AT THIS TIME.
--- NOTE | 2018-08-07 11:26 | NUR ---
Pt continues to believe that she doesn't belong in the [facility] because she is not on the list. This AM, pt stated to this screenplay writer that pt knows she is going to long term for this reason. Reassurance provided to pt. Phoned pt's sister Snehal Perez and provided update. Discussed discharge options. Informed Snehal that a PASRR has been submitted. Will await PAS determination before pursuing NF referral. Snehal stated that preferred NF is [facility].
--- NOTE | 2018-08-07 11:49 | NUR ---
AM GROUP/EXERCISE AND COPING SKILLS PT ATTENDED GROUP AND SAT WITH PEERS BUT DID NOT PARTICIPATE. PT WAS OBSERVANT AND ATTENTIVE BUT DID NOT SPEAK OR SHARE. PT DIDN'T EXPRESS ANY PARANOID IDEATIONS DURING GROUP.
--- NOTE | 2018-08-07 12:15 | NUR ---
P- DEPRESSED MOOD, FLAT AFFECT, PARANOID DELUSIONS, ISOLATIVE/WITHDRAWN TO SELF. I- ORIENTATION, MOOD AND BEHAVIOR ASSESSED. ASSESSED PT FOR SI/HI, INTENT OR PLAN. ASSESSED PT FOR S/S HALLUCINATIONS, PARANOIA AND/OR DELUSIONS. MEDICATIONS ADMINISTERED PER PHYSICIAN'S ORDERS. ENCOURAGED PT TO ATTEND AND PARTICIPATE IN [facility] GROUPS AND ACTIVITIES. ASSISTANCE WITH ADL CARE PROVIDED NEEDED. R- PT IS ALERT AND ORIENTED TO PERSON AND PLACE, NOT TO TIME OR SITUATION. MEMORY APPEARS TO BE INTACT. RESPS EASY AND EVEN ON ROOM AIR. MOOD APPEARS DEPRESSED WITH FLAT AFFECT. SPEECH IS MONOTONE, SLOW, BUT COHERENT. PT IS ABLE TO MAKE NEEDS KNOWN WITHOUT DIFFICULTY. SLOW PROCESSING REMAINS. PT DENIES SI/HI, INTENT OR PLAN. PT DENIES HALLUCINATIONS, NO RESPONSE TO INTERNAL STIMULI NOTED. PT CONTINUES TO VOICE PARANOID DELUSIONS T/O SHIFT RELATED TO HER "NOT BELONGING HERE" AND "GOING TO [facility]". PT MEDICATION COMPLIANT THIS AM WITH ENCOURAGEMENT FROM STAFF, PT STATES "THESE PILLS ARE FAKE". EDUCATION PROVIDED. DIFFICULT TO REDIRECT, PT DOES NOT SEEM TO ACCEPT REALITY WHEN PRESENTED. PT ATTENDED MORNING GROUP BUT REMAINS ISOLATIVE/WITHDRAWN TO SELF EVEN IN A GROUP SETTING. P- PLAN TO CONTINUE CURRENT TREATMENT; CONTINUE TO MONITOR MOOD AND BEHAVIORS. PROVIDE APPROPRIATE REORIENTATION, REDIRECTION AND 1:1 NEEDED. CONTINUE TO ENCOURAGE MEDICATION COMPLIANCE WELL GROUP ATTENDANCE AND PARTICIPATION.
--- NOTE | 2018-08-07 13:40 | NUR ---
OT NOTE Pt was seen this P.M. 1:1 for 12 minute OT session with WATER SUPERVISOR and nursing staff present for observation only. Upon arrival pt was sitting upright in the dining room. Pt identified by name and . Pt would respond to every question and/or command with "I am doing bad today, they are coming to arrest me." Sit to stand completed from chair level with SBA. Challenged pt's static and dynamic standing tolerance needed for increased I in self care tasks and functional transfers. Pt was able to tolerate aprox 5 minutes at a time before sitting due to fatigue. Pt completed functional mobility to her room with SBA to complete ADL task however upon arrival pt stated "No, they will find me in here and come and get me. We have to go." No ADL tasks completed at this time due to previous statement. Throughout mobility pt had occasional LOB that required Fer to correct due to narrow base of support. Pt was left sitting upright in the dining room under [facility] staff supervision. Continue with rec D/C plan to LTC. MOISES Rosas/Elif
--- NOTE | 2018-08-07 15:38 | NUR ---
PM GROUP/MANICURES AND MUSIC PT ATTENDED GROUP BUT CHOSE NOT TO PARTICIPATE. PT SAT AT TABLE WITH PEERS OBSERVING AND LISTENING TO MUSIC. PT EXPRESSED NO PARANOID IDEATIONS DURING GROUP BUT DID REPEATEDLY GET UP FROM HER CHAIR AND PACE THE ROOM FOR A FEW MINUTES AND THEN WOULD SIT BACK DOWN. PT WAS QUIET AND DID NOT ENGAGE IN CONVERSATION
--- NOTE | 2018-08-07 17:39 | NUR ---
SHIFT CHART CHECK COMPLETED.
[2018-08-07 20:00] VITALS: BP 114/70
--- NOTE | 2018-08-07 21:28 | NUR ---
Patient alert to person and place with confusion noted. Patient is depressed with flat affect. Patient has limited verbal interaction. ST/LT memory deficits noted.Patient keeps stating "go ahead and arrest me now. I know my name is in the paper. These are fake pills you are giving me." Attempted to redirect and reorient but unsuccessful. Patient is sitting calmly in quiet room at this time. Provided 1:1 with patient for emotional support. Patient compliant with medications without any difficulty. Plan to continue to provide 1:1 for emotional support and redirect/reorient when needed and appropriate. Continue to encouarge medication compliance. Q 15 minute safety checks continued and maintained. See [facility] flowsheet for further documentation.
--- NOTE | 2018-08-08 00:32 | NUR ---
24 HR chart check completed.
--- NOTE | 2018-08-08 05:51 | NUR ---
Patient slept approx. 6 hours throughout shift. Q 15 minute safety checks continued and maintained.
[2018-08-08 07:28] VITALS: BP 104/79
--- NOTE | 2018-08-08 08:00 | NUR ---
Treatment Plan meeting with Dr. Peña, RN, AT, SW and Radiology Nurse. Plan for discharge next week. Pt. for placement, PASRR has been completed and submitted and is pending.
--- NOTE | 2018-08-08 08:01 | NUR ---
LC BRADEN [id number] Please refer to the physician's history and physical for past medical history, comorbid conditions, and allergies. Diagnosis: BIPOLAR DISORDER Sanchez Score: 19,LOW OR NO RISK WOUND DESCRIPTIONS: Wound Number: 1 Location of the wound: lower abdominal fold Type of wound: fungal Thickness: Partial Size: 9.0cm x 5.5cm x 0.1cm Tunneling: none Undermining: none Sinus Tract: none Presence of Exudate: none Amount: None Color: Red Odor: None Periwound Skin Appearance: Normal Wound edges: approximated Pain (associated with wound): none at time of assessment How does patient state this happened? pt unsure when this happened Surface the patient is resting on: Proform SKIN PREVENTION RECOMMENDATION: 1. Pressure redistribution support surface as appropriate 2. Elevate heels 3. Remove boots/TEDS every shift and reapply 4. Head of bed 30 degrees as tolerated 5. Assess nutrition and hydration 6. Manage moisture 7. Avoid the use of containment devices while in bed 8. Use absorptive products on surfaces limit layers of linens on bed 9. Turn and reposition every 1-2 hours in bed and every 1 hour in chair as tolerated 10. Weight shifts every 15 minutes while up in chair 11. Offloading with pillows or device to keep heels elevated off bed 12. Monitor skin at least every shift 13. Inspect under medical devices twice a day WOUND TREATMENT RECOMMENDATIONS: Continue current nystatin orders.
--- NOTE | 2018-08-08 08:50 | NUR ---
OT NOTE Pt was seen this A.M. 1:1 for 10 minute OT session with RAILROAD WHEELS AND AXLE INSPECTOR and nursing staff present for observation only. Upon arrival pt was sitting uprihgt in dining room. Pt identified by name and and had complaints of "leg cramps". Pt completed functional mobility to her bedroom with CGA DEPARTMENT OPERATIONS MANAGER. There therapist attempted to complete ADL task(s) and pt declined stating "this is a trap, I can't trust you all." No ADL tasks completed at this time. Challenged pt's static standing tolerance needed for increased I in self care tasks and functional transfers. Pt was able to tolerate aprox 5 minutes at a time before sitting due to fatigue. Throughout pt had three LOB backwards that required modA to correct. Throughout entire session pt was very isolated to self and non-verbal for most of session. Pt was left sitting upright in dining room under [facility] staff supervision. Continue with rec D/C plan to LTC. MOISES Rosas/Elif
--- NOTE | 2018-08-08 08:58 | NUR ---
PATIENTS BLOOD PRESSURE RECHECKED. MANUAL BLOOD PRESSURE 108/60.
--- NOTE | 2018-08-08 09:00 | NUR ---
PHYSICAL THERAPY Patient seen this am for therapy visit and was sitting in activity room chair upon therapist arrival. OT pharmaceutical assistant was present for observation only during MACHINE SHOP SPECIALIST visit as pateient transfers sit to stand with SBA x 1. Patient needed several v/c's throughout treatment session to improve focus on task and at times appeared very depressed, with flat affect. Patient ambulated SBA, ad demi in hallway,150'x 1, 100'x 1, without AD, demonstrating very slow obinna and increased caution during all turns. Patient too was unsteady completing eyes open / closed ex and returned to activity room chair at table under [facility] staff Superverision. Will continue per POC as tolerated, total treatment time 15 minutes. Ray Smith, MACHINE SHOP SPECIALIST
--- NOTE | 2018-08-08 10:28 | NUR ---
Dr. Branch notified of wound care recommendations.
--- NOTE | 2018-08-08 10:34 | NUR ---
P: Patient stating that she is going to be arressted when she gets out of here so why dont we just call security now; medications she is taking are fake; she does not have a room here and we are lying when we show her her room. With ADLs and care patient has had to be told step by step. Patient was taken down to the restroom by milieu and was reported that the patient had to be told that she needed to go to to the restroom, sit down on the toilet, and to wipe. Step by step instruction with dressing, grooming, and other ADLs have been required so far this shift. Patient is refusing meals, food offered, and fluids. Patient is alert to person and place only, unsure of time and situation. Isolative and withdrawn, patient does not speak with other peers and when spoken to patient expresses paranoid thoughts; does not engage in conversation, only speaks in short sentences and then goes back to paranoid thought process. I: 1:1 interaction with emotional support provided. Presented reality and reoriented patient of the reason she is in the hospital, no one is coming to arrest her and she has no charges pending against her, her medications are prescribed by the physician and education on each med and why she is taking them for her individual case, reassured that she is on our list to be on this floor and an assigned room/bed are given to her during her stay. Frequently offerring food and fluids due to poor oral intake. Provide medications on time with education on each med. Remind patient to go to the bathroom every two hours, assisted by staff, direction on step by step with care. Encourage to participate in group therapies for socialization and emotional support. Encourage to interact with peers and staff, try to engage patient in conversation. R: Patient remains paranoids and preoccupied on thoughts. Does not engage in conversation with peers or staff, voices paranoid thoughts. Reorientation, redirection, and reality presentation is ineffective. Patient sitting in the dining room with other peers but isolates self. Participates in group but does not interact. Patient continues to state that medications are fake no matter the education provided, patient is medication compliant. Patient has to be told that she has to go to the bathroom or she will stay in her seat all day, remains continent. Step by step instruction is needed for ADLs and care. Refuses food and drinks some fluids. P: Continue to reassure, redirect, reorient, and reality presentation when paranoid thoughts/confusion is present. Encourage to interact with peers and staff. Encourage to continue to participate in group therapies for socialization and emotional support. Provide medications prescribed by the physician with education. Step by step instruction with care and remind to go to the restroom every two hours. Encourage patient to eat her meals, educate on the importance of hydration and nutrition. Offer food and fluids often. Q15 minute checks maintained for safety.
--- NOTE | 2018-08-08 11:00 | NUR ---
DR. CURRY ON FLOOR TO ASSESS PATIENT.
--- NOTE | 2018-08-08 11:33 | NUR ---
PHYSICAL THERAPY Continue towards goals with plan of care on original evalution with new extended end date: 08/30/18. Progress noted. Giovana Portillo,PT
--- NOTE | 2018-08-08 11:41 | NUR ---
Shift chart check completed.
--- NOTE | 2018-08-08 11:44 | NUR ---
AM GROUP/EXERCISE AND ART PT ATTENDED GROUP BUT REFUSES TO PARTICIPATE IN ANY WAY. PT SITS WITH THE GROUP BUT DOES NOT SPEAK UNLESS SPOKEN TO. PT DID NOT EXPRESS AND PARANOID IDEATIONS DURING GROUP.
--- NOTE | 2018-08-08 14:21 | NUR ---
OCCUPATIONAL THERAPY CO-SIGN I approve of the Occupational Therapy notes written above. KELVIN MOREJON OTR/Elif
--- NOTE | 2018-08-08 15:46 | NUR ---
PM GROUP/ART AND MUSIC THERAPY PT ATTENDED GROUP AND FOR THE FIRST TIME PARTICIPATED BY DOING ONE PAINTING. PT WAS QUIET BUT DID COMPLIMENT OTHERS ON THEIR WORK. PT EXPRESSED NO PARANOID IDEATIONS DURING GROUP
[2018-08-08 19:50] VITALS: BP 108/72
--- NOTE | 2018-08-08 21:29 | NUR ---
CONTINUES TO CALL MEDICATION FAKE MEDICINE AND SHE IS IN THE WRONG PLACE. STATES SHE IS WAITING TO BE ARRESTED AND WHY DON'T WE JUST DO IT. UNABLE TO REDIRECT WITH EMOTIONAL SUPPORT OR REALITY BASED INFORMATION. FLAT AFFECT REMAINS UNCHANGED. WANDERING AROUND UNIT. WILL CONTINUE TO MONITOR FOR CHANGES IN BEHAVIOR OR MOOD.
--- NOTE | 2018-08-09 00:19 | NUR ---
CLIENT REMAINS IN BED SINCE TAKING HERSELF IN. MOVES SELF AROUND. WILL CONTINUE TO MONITOR
--- NOTE | 2018-08-09 02:55 | NUR ---
24 HR chart check completed.
--- NOTE | 2018-08-09 05:45 | NUR ---
SLEPT WELL WITH MINIMAL AWAKENING PAST 2130PM
--- NOTE | 2018-08-09 07:30 | NUR ---
PHYSICAL THERAPY Patient seen this am for therapy visit and was sitting up in activity room chair upon therapist arrival. Patient voices no new c/'s at this time as OT assistant plant control operator was present for observation only during LIEUTENANT SHIFT SUPERVISOR treatment. Patient transfers sit to stand, SBA and ambulates 150'x 1, no AD, demonstrating smoother gait pattern. Patient performed Tandem walk, CGA, demonstrating unsteady gait pattern, with reaching several times to handrail for support. Patient also performed single leg stance ex, tolerating 2 seconds L side and 3 seconds R side prior to LOB. Patient returned to activity room chair and remained at table awaiting breakfast under [facility] staff Supervison. Will continue per POC as tolerated, total treatment time 14 minutes. Ray Smith, LIEUTENANT SHIFT SUPERVISOR
--- NOTE | 2018-08-09 07:38 | NUR ---
OT NOTE Pt was seen this A.M. 1:1 for 10 minute OT session with ORTHOTIST/PROSTHETIST and nursing staff present for observation only. Upon arrival pt was sitting upright in the dining room. Pt identified by name and and had no complaints at this time. Throughout entire session pt was very isolative to self. Functional mobility completed to her bedroom with SBA. Challenged pt's dynamic standing tolerance needed for increased I in self care tasks and functional transfers. Pt was able to tolerate aprox 8 minutes before sitting due to fatigue. Pt was left sitting upright in the dining room under [facility] staff supervision. Continue with rec D/C plan to LTC. MOISES Rosas/Elif
[2018-08-09 07:56] VITALS: BP 111/60
--- NOTE | 2018-08-09 08:00 | NUR ---
Treatment Plan meeting with Dr. Peña, RN, AT, SW and Serology Technician. Plan for discharge Middle of next week. Pt. is for SNF Placement.
--- NOTE | 2018-08-09 09:44 | NUR ---
[facility] returns. Pt. is approved for Nursing Facility Services. Copy Placed in Chart.
--- NOTE | 2018-08-09 10:24 | NUR ---
Referral Faxed to [facility]. Family had requested [facility] but [facility] feels that pt. should have wanderguard due to documented Elopement Risk.
--- NOTE | 2018-08-09 10:47 | NUR ---
DR CURRY ON UNIT TO SEE PATIENT
--- NOTE | 2018-08-09 10:59 | NUR ---
Received PAS determination and pt is approved for NF. Phoned pt's sister Snehal Perez and informed her of this. Updated Snehal on pt's status.
--- NOTE | 2018-08-09 11:30 | NUR ---
Neo from [facility] here to see patient for Onsite Assessment. Spoke with patient in the dining area and Pt. is agreeable to go to nursing facility for short term stay.
--- NOTE | 2018-08-09 14:11 | NUR ---
P-PARANOID. PATIENT ALERT AND ORIENTED WITH PERIODS OF CONFUSION. PATIENT WITH SHORT TERM AND CUSTODIAL MEMORY DEFICITS. PATIENT WITH NO HALLUCINATIONS BUT WITH PARANOID DELUSIONS. PATIENT WITH NO SUICIDAL OR HOMICIDAL IDEATIONS. PATIENT STATING "YOU ARE GIVING ME FAKE MEDICATIONS AND THE ARM BAD IS FAKE" THROUGHOUT SHIFT I-REDIRECTION WITH 1:1 THERAPEUTIC INTERVENTIONS AND PRESENT REALITY. EDUCATE AND ENCOURAGE MEDICATION COMPLIANCE R-PATIENT IS MEDICATION COMPLIANT WITH ENCOURAGEMENT. PATIENT ISOLATIVE AND WITHDRAWN. PATIENT IS REDIRECTED THROUGHOUT SHIFT AND ASSISTED WITH ADL'S WHEN NEEDED. PATIENT IS WITH FLAT AFFECT. DISCUSSED TRIGGERS FOR PARANOID EPISODES AND COPING MECHANISMS. PATIENT WITH LITTLE INTEREST IN DISCUSSING PARANOID EPISODES. REDIRECTION INEFFECTIVE AT TIMES WITH REALITY INEFFECTIVE AT TIMES DUE TO PATIENT COGNITION P-CONTINUE TO ENCOURAGE MEDICATION COMPLIANCE, CONTINUE TO PRESENT REALITY, ENCOURAGE GROUP THERAPY WHILE AWAKE
--- NOTE | 2018-08-09 16:41 | NUR ---
Shift chart check completed.
[2018-08-09 20:32] VITALS: BP 113/72
--- NOTE | 2018-08-10 01:17 | NUR ---
P-DEPRESSED MOOD I-ASSESS ORIENTATION, MOOD AND BEHAVIOR. ASSESSED FOR SI/HI, INTENT OR PLAN. PT ASSESSED FOR HALLUCINATIONS AND/OR DELUSIONS. PROVIDE 1:1 WITH THERAPEUTIC INTERVENTIONS NEEDED. ENCOURAGE MEDICATION COMPLIANCE AND EDUCATE. R-PATIENT ALERT AND ORIENT TO PERSON AND PLACE, NOT TO TIME OR SITUATION. MOOD DEPRESSED WITH FLAT AFFECT. PT CALM, ISOLATIVE TO SELF, SAT IN DINING ROOM TO WATCH TV AND HAVE HS SNACK. MINIMAL VERBALIZATION WITH STAFF UPON INTERACTIONS, DURING 1:1 STATED "I DONT KNOW, IM NOT GREAT I GUESS". PT DENIES SI/HI AND HALLUCINATIONS, NO NOTED RESPONDING TO INTERNAL STIMULI. NO PARANOIA OR DELUSIONS OBSERVED. NO PHYSICAL COMPLAINTS VOICED. PATIENT MEDICATION COMPLIANT WITHOUT DIFFICULTY AFTER REVIEW. PT CURRENTLY LAYING DOWN WITH EYES CLOSED, RESPIRATIONS EASY AND REGULAR, NO SIGNS OR SYMPTOMS OF DISTRESS NOTED. P-CONTINUE TO MONITOR MOOD AND BEHAVIORS. PROVIDE 1:1 FOR PATIENT TO VOICE FEELINGS WITH EMOTIONAL SUPPORT. ENCOUARGE MEDICATION COMPLIANCE. MAINTAIN Q 15 MIN CHECKS.
--- NOTE | 2018-08-10 05:58 | NUR ---
PATIENT OBSERVED ON Q 15 MIN CHECKS TO HAVE SLEPT APPROX 6 HOURS WITH NO AWAKENINGS OR SIGNS AND SYMPTOMS OF DISTRESS NOTED.
[2018-08-10 07:44] VITALS: BP 112/65
--- NOTE | 2018-08-10 10:28 | NUR ---
Patient alert to person and place with confusion noted. Patient is depressed with flat affect. Patient has limited verbal interaction. ST/LT memory deficits noted. Provided 1:1 with patient for emotional support. Patient compliant with medications without any difficulty. Patient participating in group therapy. Plan to continue to provide 1:1 for emotional support and redirect/reorient when needed and appropriate. Continue to encouarge medication compliance. Q 15 minute safety checks continued and maintained. See [facility] flowsheet for further documentation.
--- NOTE | 2018-08-10 11:57 | NUR ---
AM GROUP/EXERCISES/AFFIRMATION BOX PT ATTENDED GROUP BUT CHOSE TO OBSERVE RATHER THAN PARTICIPATE. PT DID NOT SPEAK ENTIRE GROUP. PT WILL CONTINUE TO ATTEND GROUP ASND WILL BE ENOCURAGED TO PARTICPIATE.
--- NOTE | 2018-08-10 15:22 | NUR ---
Shift chart check completed.
--- NOTE | 2018-08-10 16:37 | NUR ---
PM GROUP/MUSIC/BIRDHOUSES PT ATTENDED AND PARTICIPATED IN GROUP ALTHOUGH PT WAS QUIET AND KEPT TO SELF. PT DID NOT EXPRESS ANY PARANOID DELUSIONS AT THIS TIME AND WILL CONTINUE TO ATTEND GROUP AND BE ENCOURAGED TO PARTICIPATE TO BEST OF ABILITY.
[2018-08-10 20:42] VITALS: BP 109/60
--- NOTE | 2018-08-10 23:26 | NUR ---
24 HOUR CHART CHECK COMPLETED.
--- NOTE | 2018-08-11 01:19 | NUR ---
P-DEPRESSED MOOD I-ASSESS ORIENTATION, MOOD AND BEHAVIOR. ASSESSED FOR SI/HI, INTENT OR PLAN. PT ASSESSED FOR HALLUCINATIONS AND/OR DELUSIONS. PROVIDE 1:1 WITH THERAPEUTIC INTERVENTIONS NEEDED. ENCOURAGE MEDICATION COMPLIANCE AND EDUCATE. R-PATIENT ALERT AND ORIENTED TO PERSON AND PLACE, NOT TO TIME OR SITUATION. MOOD DEPRESSED WITH FLAT AFFECT. PT CALM, ISOLATIVE TO SELF, SAT IN DINING ROOM TO WATCH TV AND HAVE HS SNACK. MINIMAL VERBALIZATION WITH STAFF UPON INTERACTIONS, DURING 1:1 STATED "IM DOING BETTER TODAY, I THINK". PT DENIES SI/HI AND HALLUCINATIONS, NO NOTED RESPONDING TO INTERNAL STIMULI. NO PARANOIA OR DELUSIONS OBSERVED. NO PHYSICAL COMPLAINTS VOICED. PATIENT MEDICATION COMPLIANT WITHOUT DIFFICULTY AFTER REVIEW. PT CURRENTLY LAYING DOWN WITH EYES CLOSED, RESPIRATIONS EASY AND REGULAR, NO SIGNS OR SYMPTOMS OF DISTRESS NOTED. P-CONTINUE TO MONITOR MOOD AND BEHAVIORS. PROVIDE 1:1 FOR PATIENT TO VOICE FEELINGS WITH EMOTIONAL SUPPORT. ENCOUARGE MEDICATION COMPLIANCE. MAINTAIN Q 15 MIN CHECKS.
--- NOTE | 2018-08-11 05:52 | NUR ---
PATIENT OBSERVED ON Q 15 MIN CHECKS TO HAVE SLEPT APPROX 7 HOURS WITH NO AWAKENINGS OR SIGNS AND SYMPTOMS OF DISTRESS NOTED.
[2018-08-11 07:56] VITALS: BP 110/62
--- NOTE | 2018-08-11 11:06 | NUR ---
DR CURRY AND DR LIN ON UNIT TO SEE PATIENT
--- NOTE | 2018-08-11 14:21 | NUR ---
P-PARANOID. PATIENT ALERT AND ORIENTED WITH PERIODS OF CONFUSION. PATIENT WITH SHORT TERM AND HALF-WAY MEMORY DEFICITS. PATIENT WITH NO HALLUCINATIONS BUT WITH PARANOID DELUSIONS. PATIENT WITH NO RESPIRATORY DISTRESS. PATIENT STATING DURING VISIT WITH FAMILY THAT "THE POLICE WERE COMING TO GET HER". PATIENT WITH NO SUICIDAL OR HOMICIDAL IDEATIONS. I-REDIRECTION WITH 1:1 THERAPEUTIC INTERVENTIONS AND PRESENT REALITY. EDUCATE AND ENCOURAGE MEDICATION COMPLIANCE R-PATIENT IS MEDICATION COMPLIANT WITH ENCOURAGEMENT. PATIENT ISOLATIVE AND WITHDRAWN. PATIENT IS REDIRECTED THROUGHOUT SHIFT AND ASSISTED WITH ADL'S WHEN NEEDED. PATIENT IS WITH FLAT AFFECT. PATIENT NOT WILLING TO DISCUSS TRIGGERS FOR PARANOID EPISODES AT THIS TIME. REDIRECTION INEFFECTIVE AT TIMES WITH PRESENTING REALITY AT TIMES DUE TO PATIENT COGNITION P-CONTINUE TO ENCOURAGE MEDICATION COMPLIANCE, CONTINUE TO PRESENT REALITY, ENCOURAGE GROUP THERAPY WHILE AWAKE
--- NOTE | 2018-08-11 16:53 | NUR ---
PM GROUP/LEISURE SKILLS/ MUSIC PT ATTENDED GROUP BUT DID NOT WANT TO PARTICIPATE AT FIRST. PT ENCOURAGED BY THIS STAFF AND MENTAL HEALTH WORKER JUST TO TRY AN ACTIVITY. PT STATED "WELL I GUESS I COULD TRY" WHICH IS IMPROVEMENT FROM PREVIOUS GROUPS WHEN PT COMPLETELY UNWILLING. PT WILL CONTINUE TP ATTEND AND PARTICIPATE IN FUTRUE GROUP SESSIONS. NO PARANOIA NOTED AT THIS TIME.
--- NOTE | 2018-08-11 17:34 | NUR ---
DR LIN UPDATED ABOUT RESOLVED AREA TO ABDOMINAL FOLD. NYSTATIN POWDER TO BE DISCONTINUED
--- NOTE | 2018-08-11 18:07 | NUR ---
Shift chart check completed.
[2018-08-11 20:20] VITALS: BP 110/65
--- NOTE | 2018-08-11 23:57 | NUR ---
24 HOUR CHART CHECK COMPLETED.
--- NOTE | 2018-08-12 02:19 | NUR ---
P-DEPRESSED MOOD I-ASSESS ORIENTATION, MOOD AND BEHAVIOR. ASSESSED FOR SI/HI, INTENT OR PLAN. PT ASSESSED FOR HALLUCINATIONS AND/OR DELUSIONS. PROVIDE 1:1 WITH THERAPEUTIC INTERVENTIONS NEEDED. ENCOURAGE MEDICATION COMPLIANCE AND EDUCATE. R-PATIENT ALERT AND ORIENTED TO PERSON AND PLACE WITH PERIODS OF CONFUSION. MOOD DEPRESSED WITH FLAT AFFECT. PT CALM, ISOLATIVE TO SELF, SAT IN DINING ROOM TO WATCH TV AND HAVE HS SNACK. MINIMAL VERBALIZATION WITH STAFF UPON INTERACTIONS, DURING 1:1 STATED "IM DOING GOOD". PT DENIES SI/HI AND HALLUCINATIONS, NO NOTED RESPONDING TO INTERNAL STIMULI. NO PARANOIA OR DELUSIONS OBSERVED. NO PHYSICAL COMPLAINTS VOICED. PATIENT MEDICATION COMPLIANT WITHOUT DIFFICULTY AFTER REVIEW. PT CURRENTLY LAYING DOWN WITH EYES CLOSED, RESPIRATIONS EASY AND REGULAR, NO SIGNS OR SYMPTOMS OF DISTRESS NOTED. P-CONTINUE TO MONITOR MOOD AND BEHAVIORS. PROVIDE 1:1 FOR PATIENT TO VOICE FEELINGS WITH EMOTIONAL SUPPORT. ENCOUARGE MEDICATION COMPLIANCE. MAINTAIN Q 15 MIN CHECKS.
--- NOTE | 2018-08-12 05:21 | NUR ---
PATIENT OBSERVED ON Q 15 MIN CHECKS TO HAVE SLEPT APPROX 7 HOURS WITH NO AWAKENINGS OR SIGNS AND SYMPTOMS OF DISTRESS NOTED.
[2018-08-12 07:45] VITALS: BP 102/61
--- NOTE | 2018-08-12 08:15 | NUR ---
Treatment Plan meeting with Dr. Peña, RN, AT, SW and Nurse Midwife/Clinical Instructor. Plan for discharge Sun/. Pending SNF placement at [facility].
--- NOTE | 2018-08-12 08:20 | NUR ---
OT Note Pt was seen this AM 1:1 for 15 mins of OT session with nursing staff present for observation only. Upon arrival pt was sitting in chair at table in dining room area. Pt identified by name and with no complaints at this time. Sit to stand completed from chair with stand by assist for safety. Functional mobility performed to bedroom needing contact guard assist due to safety concerns due to unsteady gait. Pt transferred on/off standard commode with stand by assist. Toilet hygiene completed with stand by assist. Accomplished self care tasks consisting of washing her hands at sink side with stand by assist. Functional mobility performed to bedside. Pt sat EOB while completing UB and LB dressing tasks with stand by assist. Dressing tasks conisted of donning and doffing hoodie needing verbal cues and tactile to hold t-shirt down while performing task to modify it and donning and doffing socks with stand by assist. Pt required stand by assist with sit to stand from bed side. Contact guard needed for functional mobility back to dining area where pt was left under BHU supervision while sitting upright in chair at table. Continue with rec D/C to LTC. Junito DURÁN/Student MOISES Rosas/Elif
--- NOTE | 2018-08-12 08:49 | NUR ---
Clinical Updates faxed to [facility] to begin Precert.
--- NOTE | 2018-08-12 08:50 | NUR ---
PHYSICAL THERAPY Patient seen this am for therapy visit and was sitting in activity room chair at table upon therapist arrival. [facility] staff member was present for observation only during TOBACCO DRYING MACHINE OPERATOR vist as patient reports increased B hamstring tightness, pain rated at 5/10. Patient tolerated seated B hamstring prolonged stretch, followed by gait training, SBA, > 150' x 1. Patient voices no change in pain c/o, demonstrating slow, but steady gait pattern. Patient was pleasant, however speaks very little, only to answer questions, otherwise with flat affect. Patient returned to activity room chair and remained under [facility] staff Supervision. Will continue per POC as tolerated, total treatment time 14 minutes. Ray Smith, TOBACCO DRYING MACHINE OPERATOR
--- NOTE | 2018-08-12 09:08 | NUR ---
PATIENT COMPLAINING OF BILATERAL LOWER LEG PAIN, RATING A 5 OUT OF 10. PT REQUESTING AND RECEIVED AT THIS TIME PO TYLENOL 650MG PER PRN ORDERS. WILL CONTINUE TO MONITOR FOR EFFECTIVENESS.
--- NOTE | 2018-08-12 11:27 | NUR ---
NO FURTHER COMPLAINTS OF BILATERAL LOWER LEG PAIN AT THIS TIME. PRN EFFECTIVE.
--- NOTE | 2018-08-12 11:29 | NUR ---
P: DEPRESSED MOOD AND FLAT AFFECT. ISOLATIVE TO SELF. ALERT AND ORENTED X3 WITH ST/LT MEMORY DEFICITS NOTED INTERMITTENTLY. COMPLAIN OF BILATTERAL LOWER LEG PAIN. I: 1:1 INTERACTION WITH EMOTIONAL SUPPORT PROVIDED AND VENTIALTION OF FEELINGS. ENGAGE PT IN CONVERSATION WITH STAFF AND PEERS. ENCOURAGE TO PARTICIPATE IN GROUP THERAPIES FOR SOCIALIZATION AND EMOTIONAL SUPPORT. MONITOR MEALS AND FLUID INTAKE. PROVIDE MEDICATIONS ON TIME WITH EDUCATION. SEE EMAR FOR PAIN. R: PT REMAINS DEPRESSED AND FLAT AFFECT. REFUSES TO ELLABORATE ON WHY PT IS FEELING DEPRESSED. DENIES SI/HI, HALLUCINATIONS, DELUSIONS, OR PAIN AT THIS TIME. ENGAGES IN SHORT CONVERSATION WHEN SPOKEN TO FIRST. PARTICIPATING SOME DURING GROUP TIME. REFUSING TO INTERACT WITH OTHERS. SHOWERED AND HYGIENE COMPLETED. EATING AND DRINKING ADEQUATELY. MEDICATION COMPLIANT WITH NO DIFFICULTIES. PT SITTING IN DINING ROOM MOST OF THE DAY WITH PROMPTS TO USE THE RESTROOM. ASSISTANCE WITH CARE NEEDED WITH PROMPTING TO COMPLETE ADLS. P: CONTINUE TO MONITOR PATIENTS MOOD. ENCOURAGE TO ENGAGE IN CONVERSATION WITH OTHERS AND PARTICIPATE IN GROUP ACTIVITIES FOR SOCIALIZATION AND EMOTIONAL SUPPORT. PROVIDE MEDICATIONS PRESCRIBED BY THE PHYSICIAN ON TIME. MONITOR FOR ANY SI. 1:1 INTERACTION WITH EMOTIONAL SUPPORT WHEN NECESSARY. PROMPTING ON ADLS AND CARE. Q15 MINUTE CHECKS MAINTAINED FOR SAFETY. MONITOR FOR PARANOID THOUGHT PROCESS.
--- NOTE | 2018-08-12 11:39 | NUR ---
AM GROUP/GAME/LEISURE SKILLS PT ATTENDED IN GROUP BUT DID NOT PARTICIPATE. THIS STAFF ATTEMPTING TO GET PT INVOLVED IN PEER CONVERSATION BUT PT WOULD ANSWER WITH VERY SHORT RESPONSES. PT NOT INTERESTED IN ANY LEISURE SKILLS THIS MORNING BUT WILL CONTINUE TO BE ENCOURAGED IN AFTERNOON GROUP.
--- NOTE | 2018-08-12 11:40 | NUR ---
Dr. Escobedo on floor to assess patient. Update provided.
--- NOTE | 2018-08-12 13:09 | NUR ---
Shift chart check completed.
--- NOTE | 2018-08-12 16:21 | NUR ---
PM GROUP/MOVIE/LEISURE SKILLS PT ATTENDE AND PARTICIPATED IN GROUP BY SHARING HER MOTHER'S DAY CARD WITH PEERS WELL ALLOWING A MENTAL HEALTH WORKER TO PAINT HER NAILS. PT DID NOT EXPRESS ANY PARANOID DELUSIONS AT THIS TIME AND WILL CONTINUE TO BE ENCOURAGED TO ATTEND AN DPARTICPIATE IN FUTRUE GROUP SESSIONS.
[2018-08-12 20:00] VITALS: BP 109/60
--- NOTE | 2018-08-12 23:05 | NUR ---
P-DEPRESSED MOOD I-ASSESS ORIENTATION, MOOD AND BEHAVIOR. ASSESSED FOR SI/HI, INTENT OR PLAN. PT ASSESSED FOR HALLUCINATIONS AND/OR DELUSIONS. PROVIDE 1:1 WITH THERAPEUTIC INTERVENTIONS NEEDED. ENCOURAGE MEDICATION COMPLIANCE AND EDUCATE. R-PATIENT ALERT AND ORIENTED TO PERSON AND PLACE WITH PERIODS OF CONFUSION. MOOD DEPRESSED WITH FLAT AFFECT. PT CALM, ISOLATIVE TO SELF, IN ROOM AND BED SINCE BEGINNING OF SHIFT, REFUSED HS SNACK. MINIMAL VERBALIZATION WITH STAFF UPON INTERACTIONS, DURING 1:1 STATED "IM FINE". PT DENIES SI/HI AND HALLUCINATIONS, NO NOTED RESPONDING TO INTERNAL STIMULI. NO PARANOIA OR DELUSIONS OBSERVED. NO PHYSICAL COMPLAINTS VOICED. PATIENT MEDICATION COMPLIANT WITHOUT DIFFICULTY AFTER REVIEW. PT CURRENTLY LAYING DOWN WITH EYES CLOSED, RESPIRATIONS EASY AND REGULAR, NO SIGNS OR SYMPTOMS OF DISTRESS NOTED. P-CONTINUE TO MONITOR MOOD AND BEHAVIORS. PROVIDE 1:1 FOR PATIENT TO VOICE FEELINGS WITH EMOTIONAL SUPPORT. ENCOUARGE MEDICATION COMPLIANCE. MAINTAIN Q 15 MIN CHECKS.
--- NOTE | 2018-08-12 23:16 | NUR ---
24 HOUR CHART CHECK COMPLETED.
--- NOTE | 2018-08-13 06:52 | NUR ---
PATIENT OBSERVED ON Q 15 MIN CHECKS TO HAVE SLEPT APPROX 8 HOURS WITH X1 AWAKENING TO USE THE RESTROOM. PT REFUSED AM DOSE OF ATIVAN DUE TO FEELING "TOO TIRED". NO SIGNS OR SYMPTOMS OF DISTRESS NOTED.
[2018-08-13 07:34] VITALS: BP 108/65
--- NOTE | 2018-08-13 08:00 | NUR ---
Treatment Plan meeting with Dr. Casey RN and Package Sealer. Plan for discharge Sun/. Precert pending for [facility].
--- NOTE | 2018-08-13 08:00 | NUR ---
OT NOTE Pt was seen this A.M. 1:1 for 15 minute OT session with nursing staff present for observation only. Upon arrival pt was supine in bed. Pt identified by name and and had complaints of increased fatigue. Pt transferred supine to sit EOB with SBA. While sitting EOB pt donned B socks with SBA. Sit to stand completed from bed level with CGA for safety due to having two LOB upon inital stand that required Fer to correct. Educated pt on importance of slow rise and collecting herself before starting task. Functional mobility completed into the bathroom with SBA. There she transferred on/off standard commode, completed clothing management, and toilet hygiene with supervision. Pt then stood sink side while washing her hands with supervision. Functional mobility completed to the dining room with SBA and use of hand rail for UE support. There she was left sitting upright under [facility] staff supervision. Continue with rec D/C plan to LTC. MOISES Rosas/Elif
--- NOTE | 2018-08-13 10:38 | NUR ---
PHYSICAL THERAPY Patient seen this am for therapy visit and was sitting up in activity room chair upon therapist arrival. Several [facility] staff members were present this morning during RIVET MAKER visit as patient needed a little encouragement for active participation. Patient transfers sit to stand SBA, ambulating 75'x 2, SBA, demonstrating very slow obinna, with unsteady balance during L side 180 turn. Patient returned to activity room chair and remained in chair under [facility] staff Supervision. Will continue per POC as toelrated, total treatment time 16 minutes. Ray Smith, RIVET MAKER
--- NOTE | 2018-08-13 11:12 | NUR ---
P: DEPRESSED MOOD/FLAT AFFECT. ISOLATIVE. I: 1:1 INTERACTION WITH EMOTIONAL SUPPORT AND VENTILATION OF FEELINGS PROVIDED. ENCOURAGE TO PARTICIPATE IN GROUP ACTIVITIES WITH PEERS FOR SOCIALIZATION AND EMOTIONAL SUPPORT. ASSESS FOR SI/HI, HALLUCINATIONS, DELUSIONS, OR PAIN. ENCOURAGE INTERACTION WITH STAFF AND PEERS. PROVIDE MEDICATIONS ON TIME WITH EDUCATION ON EACH MED. R: PT STATING "I AM FINE, I JUST AM TIRED TODAY". PT DID LAY DOWN FOR TWENTY MINUTES AFTER BREAKFAST AND HAD A BREIF NAP. PT'S EXPRESSIONS ARE FLAT. PT IS MORE INTERACTIVE AT TIMES, PT WAS TALKING WITH A STAFF MEMBER AND SMILED. PT CONVERSES IN SHORT CONVERSATIONS AND THEN STOPS TALKING. MEDICATION COMPLIANT WITH NO DIFFICULTIES. PATIENT IS ALERT TO PERSON AND PLACE, UNSURE OF TIME. REORIENTATION EFFECTIVE. ST/LT MEMORY DEFICITS NOTED AT TIMES. PROMPTING ON CARE AND ADLS NEEDED. GAIT STEADY WHILE AMBULATING. PATIENT ATTENDING GROUP ACTIVITIES BUT DOES NOT PARTICIPATE OR INTERACT. DENIES SI/HI, HALLUCINATIONS, DLEUSIONS, OR PAIN AT THIS TIME. NO S/S OF INTERACTING WITH INTERNAL STIMULI. P: CONTINUE TO MONITOR PT FOR DEPRESSION AND SI. ENCOURAGE TO PARTICIPATE IN GROUP THERAPIES AND INTERACT WITH PEERS/STAFF. INCLUDE IN CONVERSATIONS. PROMPTS ON ADLS AND CARE. 1:1 INTERACTION WHEN NECESSARY. PROVIDE MEDICATIONS PRESCRIBED ON TIME AND WITH EDUCATION. Q15 MINUTE CHECKS MAINTAINED FOR SAFETY.
--- NOTE | 2018-08-13 11:28 | NUR ---
Shift chart check completed.
--- NOTE | 2018-08-13 12:08 | NUR ---
PT COMPLAINING OF BILATERAL LOWER LEG PAIN, RATING 5 OUT OF 10. REQUESTING AND RECEIVED AT THIS TIME TYLENOL PER PRN ORDER. WILL MONITOR FOR EFFECTIVENESS.
--- NOTE | 2018-08-13 12:57 | NUR ---
DR. HERNANDEZ ON FLOOR TO ASSESS PATIENT, UPDATE PROVIDED.
--- NOTE | 2018-08-13 13:08 | NUR ---
PRN TYLENOL EFFECTIVE. NO MORE VERBAL COMPLAINTS ABOUT PAIN. SITTING IN DINING ROOM WITH PEERS AT THIS TIME.
[2018-08-13 20:03] VITALS: BP 113/62
--- NOTE | 2018-08-13 20:04 | NUR ---
PT SITTING IN DAY ROOM AT THIS TIME. ALERT AND ORIENTED X3. VOICING PARANOID DELUSIONS UPON INTERACTIONS WITH THIS RN. VITALS STABLE. RESPS EASY AND EVEN ON ROOM AIR.
--- NOTE | 2018-08-13 21:00 | NUR ---
Pt ate 50% of snack. Returned to room and laying down with eyes closed at this time.
--- NOTE | 2018-08-13 21:21 | NUR ---
P-PARANOID DELUSIONS, STATES "I'LL PROBABLY BE ARRESTED TONIGHT" UPON INTERACTIONS WITH PT. AFFECT IS OVERWHELMINGLY FLAT AND BLUNTED. MOOD APPEARS DEPRESSED WITH LIMITED PEER/STAFF INTERACTIONS UNLESS INITIATED. I-MEDICATION EDUCATION PROVIDED. REALITY PRESENTED. EMOTIONAL SUPPORT PROVIDED. ENCOURAGE INCREASED PEER/SOCIAL INTERACTIONS. R-PT IGNORED THIS RN WHEN PRESENTING REALITY. MEDICATION COMPLIANT WITHOUT DIFFICULTY. PT REMAINED WITHDRAWN TO SELF. P-ENCOURAGE PEER INTERACTIONS AND FOR PT TO ATTEND AND PARTICIPATE IN GROUP THERAPY.
--- NOTE | 2018-08-14 05:34 | NUR ---
PT ATE 50% OF SNACK AND SLEPT PAST 2200 WITHOUT ANY AWAKENINGS. REMAINS SLEEPING IN BED AT THIS TIME.
--- NOTE | 2018-08-14 07:18 | NUR ---
OT NOTE Pt was seen this A.M. 1:1 for 11 minute OT session with LIME HIDE INSPECTOR and nursing staff present for observation only. Upon arrival pt was supine in bed. Pt identified by name and and had no complaints at this time. Pt transferred supine to sit EOB with SBA. While sitting EOB pt donned B socks with SBA. Functional mobility completed around the room with SBA and one LOB occuring to the R side that required Fer to correct. Pt transferred on/off standard commode with SBA. Clothing management completed with SBA and toilet hygiene completed with supervision while sitting. Pt was left sitting upright in dining room under [facility] staff supervision. Continue with rec D/C plan to LTC. MOISES Rosas/Elif
[2018-08-14 07:59] VITALS: BP 101/60
--- NOTE | 2018-08-14 08:00 | NUR ---
Treatment Plan meeting with Dr. Peña, RN, AT, SW and Berry Picker Machine Operator. Plan for discharge at the end of the week. Precert for [facility] placement Pending.
--- NOTE | 2018-08-14 08:15 | NUR ---
PHYSICAL THERAPY Patient seen this am for therapy visit and was standing at doorway to her room upon therapist arrival. OT asssistant was present for observation only during APPRENTICE PATTERN MAKER visit. Patient was very pleasant and talkative this morining and ambulated SBA x 1, ad demi in hallway, 75' x 2, demonstrating several bouts of unsteady gait pattern, especially if turning too fast. Patient returned to activity room chair at table and remained under [facility] staff Supervision. Will continue per POC as tolerated, total treatment time 16 minutes. Ray Smith, APPRENTICE PATTERN MAKER
--- NOTE | 2018-08-14 14:23 | NUR ---
P: SITS OUT IN DINING ROOM WITH NO INTERACTION WITH OTHER PEERS, INTERACTS ONLY WHEN INITIATED. FLAT AFFECT AND RESPONSES BLUNTED. PT DOES NOT KEEP A CONVERSATION, ONLY VERY SHORT INTERACTIONS. I: 1:1 INTERACTION WITH EMOTIONAL SUPPORT AND VENTILATION OF FEELINGS. PROVIDE MEDICATIONS ON TIME WITH EDUCATION ON EACH. ENCOURAGE TO PARTICIPATE IN GROUP THERAPIES FOR SOCIALIZATION AND EMOTIONAL SUPPORT. ENCOURAGE TO INTERACT WITH PEERS AND STAFF. INITATE IN CONVERSATIONS. R: PT ONLY RESPONDS IN SHORT PHRASES. ATTENDS GROUPS BUT DOES NOT PARTICIPATE. EATING AND DRINKING ADEQUATELY. MEDICATION COMPLIANT WITH NO DIFFICULTIES. PT REMAINS IN THE DINING ROOM, WATCHING TV WITH PEERS. OCCASIONALLY WILL WALK DOWN THE [place] TO HER ROOM AND THEN WILL RETURN BACK INTO THE DINING ROOM. DENIES FEELINGS OF BEING DEPRESSED OR UPSET. PT STATED "I AM DOING JUST FINE". DENIES SI/HI, HALLUCINATIONS, DELUSIONS OR PAIN AT THIS TIME. P: 1:1 INTERACTION WITH EMOTIONAL SUPPORT WHEN NECESSARY. MONITOR FOR CHANGES IN MOOD. ENCOURAGE TO PARTICIPATE IN GROUP THERAPIES FOR EMOTIONAL SUPPORT AND SOCIALIZATION. ENGAGE IN CONVERSATIONS. PROVIDE MEDICATIONS ON TIME PRESCRIBED BY THE PHYSICIAN WITH EDUCATION. Q15 MINUTE CHECKS MAINTAINED FOR SAFETY.
--- NOTE | 2018-08-14 14:43 | NUR ---
OCCUPATIONAL THERAPY CO-SIGN I approve of the Occupational Therapy notes written above. KELVIN MOREJON OTR/Elif
--- NOTE | 2018-08-14 15:00 | NUR ---
DR. HERNANDEZ AND DR. VELEZ ON FLOOR TO ASSESS PT.
--- NOTE | 2018-08-14 17:04 | NUR ---
Spoke with pt's sister Snehal Perez and provided update of pt's status and discharge status.
--- NOTE | 2018-08-14 18:12 | NUR ---
Shift chart check completed.
[2018-08-14 20:27] VITALS: BP 110/65
--- NOTE | 2018-08-14 22:36 | NUR ---
P-WITHDRAWN TO ROOM, DECREASED PEER INTERACTIONS, DEPRESSED MOOD, REFUSED HS SNACK. MEMORY GAPS NOTED I-ENCOURAGED PT TO INTERACT AND SOCIALIZE WITH PEERS IN DAY ROOM. ASSESSED PT FOR SI/HI. ENCOURAGED PO INTAKE. PT GIVEN TIME TO EXPRESS FEELINGS AND THOUGHTS. REORIENTED NEEDED. R-PT MOOD AND BEAVIOR REMAINS UNCHANGED DESPITE STAFF INTERVENTIONS. MEDICATIONS COMPLIANT WITHOUT DIFFICULTY. DENIES ANY SI/HI, PLAN, INTENT. P-ENCOURAGE PT TO ATTEND AND PARTICIPATE IN GROUP THERAPY, ENCOURAGE PEER INTERACTIONS
--- NOTE | 2018-08-15 06:37 | NUR ---
PT REFUSED HS SNACK. SLEPT GREATER THAN 8 HRS UNINTERRUPTED. SITTING AT DAY ROOM TABLE WITH PEERS WITH LIMITED INTERACTIONS. AFFECT REMAINS BLUNTED. DENIES ANY SI/HI. NO PARANOIA OR DELUSIONS VOICED THIS SHIFT. RESPS EASY AND EVEN ON ROOM AIR.
--- NOTE | 2018-08-15 07:05 | NUR ---
PHYSICAL THERAPY Patient seen this am for therapy visit and was sitting at table in Activity room upon therapist donny. OT assistant professor of economics was present for observation only during PRINTER'S DEVIL visit as patient transfers sit to stand SBA. Patient was more talkative this morning while discussing her Neice who plays softball for [employer]. Patient ambulates SBA, 150'x 1, demonstrating a slow obinna, decreased stride and "shuffling" gait pattern at times. Patient also reports mild B LE stiffness / aches during gait ex and returned to activity room table awaiting breakfast, under [facility] staff Supervison. Will continue per POC as tolerated, total treatment time 13 minutes. Ray Smith, PRINTER'S DEVIL
--- NOTE | 2018-08-15 07:14 | NUR ---
OT NOTE Pt was seen this A.M. 1:1 for 14 minute OT session with FIELD SUPERVISOR and nursing staff present for observation only. Upon arrival pt was sitting upright in the dining room. Pt identified by name and and had no complaints at this time. Pt completed functional mobility to her bedroom with SBA, pt had few unsteady balance issues however pt was able to self correct. Pt doffed/donned B socks with supervision. Pt declined any bathroom needs at this time. Challenged pt's dynamic standing tolerance needed for increased I in self care tasks and functional transfers. Pt was able to tolerate aprox 7 minutes at a time before sitting due to fatigue. Functional mobility completed back to the dining room with SBA. There she was left sitting upright at table under [facility] staff supervision. Continue with rec D/C plan to LTC. MOISES Rosas/Elif
--- NOTE | 2018-08-15 07:18 | NUR ---
Upon discharge recommend patient to follow up for wound care in outpatient setting continue current wound care orders at discharging facility.
--- NOTE | 2018-08-15 08:00 | NUR ---
PT AWAKE, ALERT, VERBAL AND PLEASANT. SITTING AT DINING ROOM TABLE WITH PEERS. ON UNIT TO SEE PT THIS AM, UPDATE GIVEN.
--- NOTE | 2018-08-15 08:00 | NUR ---
Treatment Plan meeting with Dr. Peña, RN, SW and Fixed Wing Aircraft Crew Chief. Plan for discharge Sunday if Precert returns. Pt. accepted at [facility].
[2018-08-15 08:50] VITALS: BP 108/60
--- NOTE | 2018-08-15 10:11 | NUR ---
LC BRADEN [id number] Please refer to the physician's history and physical for past medical history, comorbid conditions, and allergies. Diagnosis: BIPOLAR DISORDER Sanchez Score: 19,LOW OR NO RISK WOUND DESCRIPTIONS: Wound Number: 1 Lower abdominal fold no drainage noted at time of assessment. No odor noted at time of assessment. No open areas noted at time of assessment. Surface the patient is resting on: Proform SKIN PREVENTION RECOMMENDATION: 1. Pressure redistribution support surface as appropriate 2. Elevate heels 3. Remove boots/TEDS every shift and reapply 4. Head of bed 30 degrees as tolerated 5. Assess nutrition and hydration 6. Manage moisture 7. Avoid the use of containment devices while in bed 8. Use absorptive products on surfaces limit layers of linens on bed 9. Turn and reposition every 1-2 hours in bed and every 1 hour in chair as tolerated 10. Weight shifts every 15 minutes while up in chair 11. Offloading with pillows or device to keep heels elevated off bed 12. Monitor skin at least every shift 13. Inspect under medical devices twice a day
--- NOTE | 2018-08-15 11:50 | NUR ---
AND ON UNIT TO SEE PT AT THIS TIME.
--- NOTE | 2018-08-15 12:20 | NUR ---
Precert for [facility] Approved. Pt. can discharge Tommorow. Nurse Rina GREGORIO notified on [facility].
--- NOTE | 2018-08-15 14:23 | NUR ---
Spoke with Patient Sister Snehal and notified her of Plans to discharge Patient tommorow and cotton picking machine operator time.
--- NOTE | 2018-08-15 15:01 | NUR ---
P- MOOD CONTINUES TO APPEAR DEPRESSED WITH FLAT AFFECT. PT, HOWEVER, DENIES FEELING DEPRESSED AND STATES "NO, I'M FINE". SPEECH SLOW, COHERENT, ABLE TO MAKE NEEDS KNOWN WITHOUT DIFFICULTY. PT KEEPS TO SELF, LIMITED INTERACTIONS WITH STAFF AND PEERS NOTED. I- ORIENTATION, MOOD AND BEHAVIOR ASSESSED. ASSESSED PT FOR SI/HI, INTENT OR PLAN. ASSESSED PT FOR S/S HALLUCINATIONS, PARANOIA AND/OR DELUSIONS. MEDICATIONS ADMINISTERED PER PHYSICIAN'S ORDERS. ASSISTANCE WITH ADL CARE PROVIDED NEEDED. ENCOURAGED PT TO ATTEND AND PARTICIPATE IN [place] GROUPS AND ACTIVITIES. R- PT IS ALERT AND ORIENTED TO PERSON, PLACE, TIME. RESPS EASY AND EVEN ON ROOM AIR. MOOD APPEARS DEPRESSED WITH FLAT AFFECT, HOWEVER, PT DENIES FEELING SAD OR DEPRESSED AND STATES "I'M FINE". PT CONTINUES TO BE WITHDRAWN, KEEPS TO HERSELF, LIMITED INTERACTIONS NOTED WITH BOTH STAFF AND PEERS. PT DENIES SI/HI, INTENT OR PLAN. PT DENIES HALLUCINATIONS, NO RESPONSE TO INTERNAL STIMULI NOTED. NO PARANOIA OR DELUSIONS NOTED. NO PARANOID STATEMENTS VOICED BY PT. PT IS MEDICATION COMPLIANT WITHOUT DIFFICULTY. P- PLAN TO CONTINUE CURRENT TREATMENT, CONTINUE TO MONITOR MOOD AND BEHAVIORS, PROVIDE APPROPRIATE REORIENTATION, REDIRECTION AND 1:1 NEEDED. CONTINUE TO ENCOURAGE PT TO ATTEND AND PARTICIPATE IN [place] GROUPS AND ACTIVITIES.
--- NOTE | 2018-08-15 18:03 | NUR ---
SHIFT CHART CHECK COMPLETED.
[2018-08-15 20:00] VITALS: BP 105/60
--- NOTE | 2018-08-15 21:51 | NUR ---
Patient alert to person and place with confusion noted. Patient is depressed with flat affect. Patient has limited verbal interaction. ST/LT memory deficits noted. Provided 1:1 with patient for emotional support. Patient compliant with medications without any difficulty. Patient isolative to room except for meals and snacks. Plan to continue to provide 1:1 for emotional support and redirect/reorient when needed and appropriate. Continue to encourage medication compliance and group participation. Q 15 minute safety checks continued and maintained. See [facility] flowsheet for further documentation.
--- NOTE | 2018-08-16 00:18 | NUR ---
24 HR chart check completed.
--- NOTE | 2018-08-16 05:03 | NUR ---
Patient slept approx. 8 hours throughout shift. Q 15 minute continued and maintained.
[2018-08-16 07:18] VITALS: BP 110/57
--- NOTE | 2018-08-16 07:47 | NUR ---
PT AWAKE, ALERT, PLEASANT, EATING BREAKFAST AT DINING ROOM TABLE WITH PEERS AT THIS TIME.
--- NOTE | 2018-08-16 08:06 | NUR ---
ON UNIT TO SEE PT AT THIS TIME, UPDATE GIVEN.
--- NOTE | 2018-08-16 09:30 | NUR ---
NOTIFIED OF DISCHARGE FOR TODAY.
[2018-08-16] MEDS ORDERED: GABAPENTIN400 MG PO (09:41)
[2018-08-16] MEDS ORDERED: ZINC SULFATE220 MG PO (09:41)
[2018-08-16] MEDS ORDERED: BRIN20TA PO (09:41)
[2018-08-16] MEDS ORDERED: INVEGA9 MG PO (09:41)
[2018-08-16] MEDS ORDERED: LORAZEPAM1 MG PO (09:41)
--- NOTE | 2018-08-16 10:16 | NUR ---
Pt discharging today to [facility]. Follow-up will be with Dr Peña, visiting psychiatrist. While at [facility], pt's paranoid delusions have lessened. Pt continues to display a flat affect and minimally interacts with staff and peers. Pt is aware that she wll be discharging to a for further stabilization and PT/OT before returning home to her family.
--- NOTE | 2018-08-16 11:25 | NUR ---
Treatment Plan meeting with Dr. Peña, RN, SW and Bridge Maintenance Worker. Plan for discharge today. Pt. came to Hospital from home and requires further Short term care. Precert was received for [facility] and Pt. will discharge to [facility] Today. Transportation arranged and Family is aware of Discharge.
--- NOTE | 2018-08-16 11:26 | NUR ---
PHYSICAL THERAPY CO-SIGN I approve of the Phyical Therapy notes written above. BETTY MCKENZIE PT
--- NOTE | 2018-08-16 12:19 | NUR ---
NURSE TO NURSE REPORT GIVEN TO RICARDO AT [facility].
--- NOTE | 2018-08-16 14:15 | NUR ---
AND ON UNIT TO SEE PT AT THIS TIME.
--- NOTE | 2018-08-16 15:00 | NUR ---
P- MOOD CONTINUES TO APPEAR DEPRESSED WITH FLAT AFFECT. PT REMAINS WITHDRAWN, KEEPS TO HERSELF WITH LIMITED PEER AND STAFF INTERACTIONS. PT STATES SHE IS LOOKING FORWARD TO DISCHARGE TODAY. I- ORIENTATION, MOOD AND BEHAVIOR ASSESSED. ASSESSED PT FOR SI/HI, INTENT OR PLAN. ASSESSED PT FOR S/S HALLUCINATIONS, PARANOIA AND/OR DELUSIONS. MEDICATIONS ADMINISTERED PER PHYSICIAN'S ORDERS. ASSISTANCE WITH ADL CARE PROVIDED NEEDED. ENCOURAGED PT TO ATTEND AND PARTICIPATE IN [place] GROUPS AND ACTIVITIES. R- PT IS ALERT AND ORIENTED TO PERSON, PLACE, TIME. RESPS EASY AND EVEN ON ROOM AIR. MOOD APPEARS DEPRESSED WITH FLAT AFFECT. PT REMAINS WITHDRAWN, KEEPS TO HERSELF, LIMITED INTERACTIONS NOTED WITH BOTH STAFF AND PEERS. PT DENIES SI/HI, INTENT OR PLAN. PT DENIES HALLUCINATIONS, NO RESPONSE TO INTERNAL STIMULI NOTED. NO PARANOIA OR DELUSIONS NOTED. NO PARANOID STATEMENTS VOICED BY PT. PT IS MEDICATION COMPLIANT WITHOUT DIFFICULTY. P- PLAN TO CONTINUE CURRENT TREATMENT, CONTINUE TO MONITOR MOOD AND BEHAVIORS, PROVIDE APPROPRIATE REORIENTATION, REDIRECTION AND 1:1 NEEDED. CONTINUE TO ENCOURAGE PT TO ATTEND AND PARTICIPATE IN [place] GROUPS AND ACTIVITIES. ASSIST PT IN PREARING FOR HOSPITAL DISCHARGE TO [facility] THIS DATE.
--- NOTE | 2018-08-16 16:34 | NUR ---
PT DISCHARGED AT THIS TIME TO [facility] VIA [facility] AMBULANCE STRETCHER WITH 2 STEEL FLOOR PAN PLACING SUPERVISOR. DISCHARGE INSTRUCTIONS REVIEWED WITH PT PRIOR TO DISCHARGE WITH PT'S STATED UNDERSTANDING OF ALL. INSTRUCTIONS ALSO PROVIDED TO NURSING FACILITY. ALL PERSONAL BELONGINGS WERE SENT WITH THE PT INCLUDING INSURANCE CARD FROM [facility] AND HOME MED LISINOPRIL FROM PHARMACY. OTHER HOME MEDS WERE RETURNED TO PHARMACY AT PT'S REQUEST SINCE THEY HAD BEEN DISCONTINUED. PT LEFT THE UNIT IN STABLE CONDITION AT 1634. AVIATION ELECTRICIAN PRESENT FOR DISCHARGE.
--- NOTE | 2018-08-19 08:02 | NUR ---
OCCUPATIONAL THERAPY CO-SIGN I approve of the Occupational Therapy notes written above. KELVIN MOREJON OTR/Elif
== END 2018-08-16 16:34 | disposition other institution (70) | DRG 885 ==
LOC: 3N 21:32
PROVIDERS: Registered Nurse; ADMIT Psychiatry & Neurology Psychiatry
DX: F33.3 Major depressive disorder, recurrent, severe with psychotic symptoms (principal); I10 Essential (primary) hypertension; L40.9 Psoriasis, unspecified; G47.30 Sleep apnea, unspecified; F41.9 Anxiety disorder, unspecified; M19.90 Unspecified osteoarthritis, unspecified site; Z88.1 Allergy status to other antibiotic agents; Z88.6 Allergy status to analgesic agent; Z88.8 Allergy status to other drugs, medicaments and biological substances; Z90.710 Acquired absence of both cervix and uterus; Z79.899 Other long term (current) drug therapy

== ENCOUNTER 2020-02-18 11:38 | Emergency (ER) | payer OTHER ==
[~2020-02-18] VITALS: Ht 170.1 cm; Wt 99.8 kg
[~2020-02-18 11:38] MED LIST: ABILIFY10 MG PO; ALEVE220 M1 PO; BRIN20TA PO; GABAPENTIN400 MG PO; INVEGA9 MG PO; LEXAPRO10 MG PO; LORAZEPAM1 MG PO; MELATONIN3 MG PO; NEURONTIN300 MG PO; PRINIVIL10 MG PO; TRAZODONE100 MG PO; XYZAL5 M1 PO; ZINC SULFATE220 MG PO; ZOCOR20 MG PO
[2020-02-18 13:07] LABS: BASO # 0.1 10*3/uL (0.0-0.1); BASO % 0.6 % (0.0-1.0); EOS # 0.2 10*3/uL (0.0-0.4); EOS % 1.8 % (1.0-4.0); HEMATOCRIT 41.7 % (37.0-47.0); LYMPH # 1.6 10*3/uL (1.3-4.4); LYMPH % 18.4 % (27.0-41.0); MEAN CELL VOLUME 88.5 fl (81.0-99.0); MEAN CORPUSCULAR HGB 29.1 pg (27.0-31.0); MEAN CORPUSCULAR HGB CONC 32.9 g/dl (33.0-37.0); MONO # 0.7 10*3/uL (0.1-1.0); MONO % 8.5 % (3.0-9.0); NEUT # 6.1 10*3/uL (2.3-7.9); NEUT % 70.4 % (47.0-73.0); PLATELET COUNT AUTOMATED 326 10*3/uL (130-400); RED BLOOD COUNT 4.71 10*6/uL (4.10-5.10); RED CELL DISTRI WIDTH 13.5 % (0-14.5); WHITE BLOOD COUNT 8.7 10*3/uL (4.8-10.8)
[2020-02-18 13:22] LABS: ALBUMIN 3.8 gm/dl (3.1-4.5); ALKALINE PHOSPHATASE 72 U/L (45-117); BUN 11 mg/dl (7-24); CHLORIDE 110 mmol/L (98-107); CREATININE 0.78 mg/dL (0.55-1.02); POTASSIUM 3.7 mmol/L (3.5-5.1); SGOT/AST 11 IU/L (3-35); SGPT/ALT 19 U/L (12-78); SODIUM 143 mmol/L (136-145); TOTAL PROTEIN 7.3 gm/dL (6.4-8.2)
[2020-02-18 13:30] LABS: BILIRUBIN Negative (Negative); BLOOD Negative (Negative); CLARITY Cloudy (Clear); COLOR Yellow (Yellow); GLUCOSE Negative (Negative); KETONE Trace (Negative); LEUKO ESTERASE 2+ (Negative); NITRITE Negative (Negative); PH 6.5 (4.5-8.0); SPECIFIC GRAVITY 1.025 (1.001-1.030)
[2020-02-18 13:34] LABS: ETHYL ALCOHOL < 3.0 mg/dl (<3)
[2020-02-18 13:45] LABS: BACTERIA 3+; CALCIUM OXALATE CRYSTALS 1+; MUCOUS 3+
[2020-02-18 13:49] LABS: URINE AMPHETAMINES < 1000 (1000ng/ml); URINE BARBITURATES < 200 (200ng/ml); URINE BENZODIAZEPINES < 200 (200ng/ml); URINE CANNABINOIDS (THC) < 50 (50ng/ml); URINE COCAINE < 300 (300ng/ml); URINE METHADONE < 300 (300ng/ml); URINE OPIATES < 300 (300ng/ml)
[2020-02-18 13:51] LABS: URINE PHENCYCLIDINE < 25 (25ng/ml)
== END 2020-02-18 14:53 | disposition home or self-care (01) ==
LOC: ED 11:38
PROVIDERS: Emergency Medicine
DX: F25.9 Schizoaffective disorder, unspecified (principal); Z88.8 Allergy status to other drugs, medicaments and biological substances; Z79.899 Other long term (current) drug therapy

== ENCOUNTER 2020-08-06 11:57 | Emergency (ER) | payer OTHER ==
[2020-08-06] MEDS ORDERED: INVEGA TRI273 MG/0.8 IM (12:23)
[2020-08-06] MEDS ORDERED: KLONOPIN0.5 MG PO (12:24)
[2020-08-06] MEDS ORDERED: PANTOPRAZOLE SO40 MG PO (12:25)
[2020-08-06] MEDS ORDERED: LEVOTHYROXINE25 MCG PO (12:25)
[2020-08-06] MEDS ORDERED: Depakote250 MG PO (12:26)
[2020-08-06 13:26] LABS: BASO # 0.1 10*3/uL (0.0-0.1); BASO % 0.7 % (0.0-1.0); EOS # 0.4 10*3/uL (0.0-0.4); EOS % 5.3 % (1.0-4.0); HEMATOCRIT 38.5 % (37.0-47.0); LYMPH # 1.2 10*3/uL (1.3-4.4); MEAN CELL VOLUME 90.6 fl (81.0-99.0); MEAN CORPUSCULAR HGB 29.9 pg (27.0-31.0); MEAN PLATELET VOLUME 8.2 fl (9.6-12.3); MONO # 0.6 10*3/uL (0.1-1.0); MONO % 8.4 % (3.0-9.0); NEUT # 5.2 10*3/uL (2.3-7.9); NEUT % 69.1 % (47.0-73.0); PLATELET COUNT AUTOMATED 209 10*3/uL (130-400); RED BLOOD COUNT 4.25 10*6/uL (4.10-5.10); RED CELL DISTRI WIDTH 14.5 % (0-14.5); WHITE BLOOD COUNT 7.6 10*3/uL (4.8-10.8)
[2020-08-06 13:32] LABS: ACETAMINOPHEN (TYLENOL) < 5.0 ug/ml (10-30); ALBUMIN 3.3 gm/dl (3.1-4.5); ALKALINE PHOSPHATASE 64 U/L (45-117); BUN 14 mg/dl (7-24); CHLORIDE 110 mmol/L (98-107); CREATININE 0.81 mg/dL (0.55-1.02); ETHYL ALCOHOL < 3.0 mg/dl (<3); POTASSIUM 4.1 mmol/L (3.5-5.1); SGOT/AST 8 IU/L (3-35); SGPT/ALT 14 U/L (12-78); SODIUM 144 mmol/L (136-145); TOTAL PROTEIN 6.7 gm/dL (6.4-8.2)
[2020-08-06 14:06] LABS: BILIRUBIN Negative (Negative); BLOOD Negative (Negative); CLARITY Clear (Clear); COLOR Yellow (Yellow); GLUCOSE Negative (Negative); KETONE Negative (Negative); LEUKO ESTERASE Negative (Negative); NITRITE Negative (Negative); PH 7.5 (4.5-8.0)
[2020-08-06 14:15] LABS: URINE AMPHETAMINES < 1000 (1000ng/ml); URINE BARBITURATES < 200 (200ng/ml); URINE BENZODIAZEPINES < 200 (200ng/ml); URINE CANNABINOIDS (THC) < 50 (50ng/ml); URINE COCAINE < 300 (300ng/ml); URINE METHADONE < 300 (300ng/ml); URINE OPIATES < 300 (300ng/ml)
[2020-08-06 14:17] LABS: BACTERIA 1+
[2020-08-06 14:19] LABS: URINE PHENCYCLIDINE < 25 (25ng/ml)
== END 2020-08-06 14:49 | disposition home or self-care (01) ==
LOC: ED 11:57
PROVIDERS: Physician Assistant
DX: R44.3 Hallucinations, unspecified (principal); Z88.8 Allergy status to other drugs, medicaments and biological substances; Z79.899 Other long term (current) drug therapy; Z90.711 Acquired absence of uterus with remaining cervical stump; Z98.890 Other specified postprocedural states

== ENCOUNTER 2021-08-17 19:02 | Inpatient (IN) | payer OTHER ==
[~2021-08-17] VITALS: Ht 165.1 cm; Wt 90.3 kg
[~2021-08-17 19:02] MED LIST changes: +ATIVAN1 MG PO; +CETIRIZINE10 MG PO; +CLOZAPINE100 MG PO; +Depakote250 MG PO; +HYDROXYZINE HCL25 MG PO; +INVEGA SUSTENN156 MG IM; +INVEGA TRI273 MG/0.8 IM; +KENALOG 0.025%15 GM T; +KLONOPIN0.5 MG PO; +LEVOTHYROXINE25 MCG PO; +PANTOPRAZOLE SO40 MG PO; +TRIHEXYPHENIDYL2 M3 PO; +TRINTELLIX20 MG PO; +VITAMIN D31250 MC1 PO
[2021-08-17 19:14] VITALS: BP 117/69
[2021-08-17 19:38] LABS: BASO % 0.4 % (0.0-1.0); EOS # 0.4 10*3/uL (0.0-0.4); EOS % 3.7 % (1.0-4.0); HEMATOCRIT 38.1 % (37.0-47.0); LYMPH % 20.3 % (27.0-41.0); MEAN CELL VOLUME 89.4 fl (81.0-99.0); MEAN CORPUSCULAR HGB CONC 33.6 g/dl (33.0-37.0); MEAN PLATELET VOLUME 7.9 fl (9.6-12.3); MONO # 0.7 10*3/uL (0.1-1.0); MONO % 7.3 % (3.0-9.0); NEUT # 6.8 10*3/uL (2.3-7.9); NEUT % 67.9 % (47.0-73.0); PLATELET COUNT AUTOMATED 304 10*3/uL (130-400); RED BLOOD COUNT 4.26 10*6/uL (4.10-5.10); RED CELL DISTRI WIDTH 13.6 % (0-14.5)
[2021-08-17] MEDS ORDERED: ATIVAN0.5 MG PO (19:39)
[2021-08-17] MEDS ORDERED: OMEPRAZOLE20 M2 PO (19:40)
[2021-08-17] MEDS ORDERED: ZOFRAN4 MG PO (19:41)
[2021-08-17] MEDS ORDERED: VITAMIN D2 1.25MG(50 (19:45)
[2021-08-17 19:47] LABS: BILIRUBIN Negative (Negative); BLOOD 1+ (Negative); CLARITY Cloudy (Clear); COLOR Yellow (Yellow); GLUCOSE Negative (Negative); KETONE Trace (Negative); LEUKO ESTERASE 2+ (Negative); NITRITE Negative (Negative); PH 7.5 (4.5-8.0); SPECIFIC GRAVITY 1.025 (1.001-1.030)
[2021-08-17 19:54] LABS: ALKALINE PHOSPHATASE 82 U/L (45-117); BUN 13 mg/dl (7-24); CHLORIDE 112 mmol/L (98-107); CREATININE 0.83 mg/dL (0.55-1.02); POTASSIUM 3.8 mmol/L (3.5-5.1); SGOT/AST 7 IU/L (3-35); SGPT/ALT 12 U/L (12-78); SODIUM 140 mmol/L (136-145); TOTAL PROTEIN 6.6 gm/dL (6.4-8.2)
[2021-08-17 19:55] LABS: URINE AMPHETAMINES < 1000 (1000ng/ml); URINE BARBITURATES < 200 (200ng/ml); URINE BENZODIAZEPINES < 200 (200ng/ml); URINE CANNABINOIDS (THC) < 50 (50ng/ml); URINE COCAINE < 300 (300ng/ml); URINE METHADONE < 300 (300ng/ml); URINE OPIATES < 300 (300ng/ml)
[2021-08-17 20:00] LABS: ACETAMINOPHEN (TYLENOL) < 5.0 ug/ml (10-30); ETHYL ALCOHOL < 3.0 mg/dl (<3)
[2021-08-17 20:00] LABS: URINE PHENCYCLIDINE < 25 (25ng/ml)
[2021-08-17 20:06] LABS: BACTERIA 4+; EPITHELIAL CELLS TNTC; MUCOUS 2+; WBC 31-40 wbc/hpf (0-5)
[2021-08-17 21:30] VITALS: BP 132/82
[2021-08-17] MEDS ORDERED: INVEGA SUSTENN234 MG IM (22:03)
[2021-08-17] MEDS ORDERED: LATU40TA PO (22:05)
[2021-08-17] MEDS ORDERED: VITAMIN D250 MCG PO (22:33)
[2021-08-18 06:32] LABS: THYROID STIM HORMONE (HS) 1.42 uIU/ml (0.358-4.75)
[2021-08-18 07:12] VITALS: BP 130/72
[2021-08-18 07:15] VITALS: BP 130/72
[2021-08-18 07:36] VITALS: BP 130/72
[2021-08-18 08:47] LABS: BLOOD Negative (Negative); CLARITY Turbid (Clear); COLOR Yellow (Yellow); KETONE Negative (Negative); LEUKO ESTERASE 3+ (Negative); NITRITE Negative (Negative)
[2021-08-18 08:48] LABS: BILIRUBIN Negative (Negative); GLUCOSE Negative (Negative)
[2021-08-18 08:51] LABS: BACTERIA 2+; EPITHELIAL CELLS TNTC
[2021-08-18 13:34] LABS: BILIRUBIN Negative (Negative); BLOOD 3+ (Negative); CLARITY Clear (Clear); COLOR Yellow (Yellow); GLUCOSE Negative (Negative); KETONE Negative (Negative); LEUKO ESTERASE 1+ (Negative); NITRITE Negative (Negative); SPECIFIC GRAVITY <= 1.005 (1.001-1.030); UROBILINOGEN 0.2 E.U./dl (0.0-1.0)
[2021-08-18 13:46] LABS: BACTERIA 2+
[2021-08-18 14:00] VITALS: BP 130/72
[2021-08-18 18:49] VITALS: BP 112/78
[2021-08-19 06:59] VITALS: BP 110/62
[2021-08-19 14:00] VITALS: BP 110/62
[2021-08-19 20:00] VITALS: BP 114/70
[2021-08-20 08:00] VITALS: BP 98/61
[2021-08-20 20:00] VITALS: BP 106/83
[2021-08-21 07:00] VITALS: BP 112/48
[2021-08-21 08:17] VITALS: BP 116/66
[2021-08-21 20:00] VITALS: BP 175/83
[2021-08-22 07:28] VITALS: BP 93/52
[2021-08-22 19:02] VITALS: BP 99/64
[2021-08-22 19:03] VITALS: BP 99/64
[2021-08-23 07:03] VITALS: BP 94/54
[2021-08-23 19:36] VITALS: BP 109/86
[2021-08-24 07:53] VITALS: BP 92/64
[2021-08-24 08:52] LABS: BASO # 0.1 10*3/uL (0.0-0.1); BASO % 0.6 % (0.0-1.0); EOS # 0.2 10*3/uL (0.0-0.4); EOS % 2.7 % (1.0-4.0); HEMATOCRIT 41.2 % (37.0-47.0); LYMPH # 1.3 10*3/uL (1.3-4.4); LYMPH % 15.1 % (27.0-41.0); MEAN CELL VOLUME 88.8 fl (81.0-99.0); MEAN CORPUSCULAR HGB 29.7 pg (27.0-31.0); MEAN CORPUSCULAR HGB CONC 33.5 g/dl (33.0-37.0); MONO # 0.6 10*3/uL (0.1-1.0); MONO % 7.1 % (3.0-9.0); NEUT # 6.2 10*3/uL (2.3-7.9); PLATELET COUNT AUTOMATED 330 10*3/uL (130-400); RED BLOOD COUNT 4.64 10*6/uL (4.10-5.10); RED CELL DISTRI WIDTH 13.3 % (0-14.5); WHITE BLOOD COUNT 8.4 10*3/uL (4.8-10.8)
[2021-08-24 09:22] LABS: ALKALINE PHOSPHATASE 80 U/L (45-117); BUN 19 mg/dl (7-24); CHLORIDE 104 mmol/L (98-107); CREATININE 0.95 mg/dL (0.55-1.02); SGOT/AST 10 IU/L (3-35); SGPT/ALT 18 U/L (12-78); SODIUM 138 mmol/L (136-145); TOTAL PROTEIN 7.2 gm/dL (6.4-8.2)
[2021-08-24 20:00] VITALS: BP 116/84
[2021-08-25 06:59] VITALS: BP 96/63
[2021-08-25 20:00] VITALS: BP 136/88
[2021-08-26 07:24] VITALS: BP 90/60
[2021-08-26 20:00] VITALS: BP 130/75
[2021-08-27 08:00] VITALS: BP 98/63
[2021-08-27 20:00] VITALS: BP 134/80
[2021-08-28 07:34] VITALS: BP 99/67
[2021-08-28 20:00] VITALS: BP 131/75
[2021-08-29 08:00] VITALS: BP 110/80
[2021-08-29 20:00] VITALS: BP 134/83
[2021-08-30 08:06] VITALS: BP 120/61
[2021-08-30 19:23] VITALS: BP 111/81
[2021-08-31 05:59] LABS: ALKALINE PHOSPHATASE 98 U/L (45-117); BUN 16 mg/dl (7-24); CHLORIDE 107 mmol/L (98-107); CREATININE 0.88 mg/dL (0.55-1.02); POTASSIUM 4.2 mmol/L (3.5-5.1); SGOT/AST 14 IU/L (3-35); SGPT/ALT 25 U/L (12-78); SODIUM 138 mmol/L (136-145); TOTAL PROTEIN 5.8 gm/dL (6.4-8.2)
[2021-08-31 06:33] LABS: BASO # 0.1 10*3/uL (0.0-0.1); BASO % 0.9 % (0.0-1.0); EOS # 0.5 10*3/uL (0.0-0.4); EOS % 5.8 % (1.0-4.0); HEMATOCRIT 34.7 % (37.0-47.0); LYMPH # 1.8 10*3/uL (1.3-4.4); LYMPH % 19.4 % (27.0-41.0); MEAN CELL VOLUME 90.4 fl (81.0-99.0); MEAN CORPUSCULAR HGB 29.2 pg (27.0-31.0); MEAN CORPUSCULAR HGB CONC 32.3 g/dl (33.0-37.0); MEAN PLATELET VOLUME 8.3 fl (9.6-12.3); MONO # 1.1 10*3/uL (0.1-1.0); MONO % 11.6 % (3.0-9.0); NEUT # 5.8 10*3/uL (2.3-7.9); NEUT % 61.4 % (47.0-73.0); PLATELET COUNT AUTOMATED 295 10*3/uL (130-400); RED BLOOD COUNT 3.84 10*6/uL (4.10-5.10); RED CELL DISTRI WIDTH 13.5 % (0-14.5); WHITE BLOOD COUNT 9.4 10*3/uL (4.8-10.8)
[2021-08-31 08:00] VITALS: BP 102/60
[2021-08-31 15:58] LABS: BILIRUBIN Negative (Negative); BLOOD Negative (Negative); CLARITY Clear (Clear); COLOR Yellow (Yellow); GLUCOSE Negative (Negative); KETONE Negative (Negative); LEUKO ESTERASE Trace (Negative); NITRITE Negative (Negative); PH 6.5 (4.5-8.0); UROBILINOGEN 0.2 E.U./dl (0.0-1.0)
[2021-08-31 16:11] LABS: BACTERIA 4+
[2021-08-31 20:00] VITALS: BP 116/83
[2021-09-01 08:00] VITALS: BP 120/53
[2021-09-01] MEDS ORDERED: TRIHEXYPHENIDYL5 MG PO (10:37)
[2021-09-01] MEDS ORDERED: ZINC SULFATE50 MG PO (10:37)
[2021-09-01] MEDS ORDERED: CLONAZEPAM0.5 M2 PO (10:37)
[2021-09-01] MEDS ORDERED: CLONAZEPAM1 MG PO (10:37)
[2021-09-01] MEDS ORDERED: CLOMIPRAMINE HC25 MG PO (10:37)
[2021-09-01] MEDS ORDERED: THORAZINE25 MG PO (10:37)
[2021-09-01] MEDS ORDERED: VITAMIN D250 MCG PO (10:49)
== END 2021-09-01 13:15 | DRG 750 ==
LOC: ED 19:02 → 3N 20:53
PROVIDERS: Counselor Professional; Hospitalist; Internal Medicine; ADMIT Psychiatry & Neurology Psychiatry; ATTEND Psychiatry & Neurology Psychiatry
DX: F25.9 Schizoaffective disorder, unspecified (principal); L40.9 Psoriasis, unspecified; F41.9 Anxiety disorder, unspecified; I73.9 Peripheral vascular disease, unspecified; I50.9 Heart failure, unspecified; M19.90 Unspecified osteoarthritis, unspecified site; E03.9 Hypothyroidism, unspecified; G47.33 Obstructive sleep apnea (adult) (pediatric); F31.9 Bipolar disorder, unspecified; E83.41 Hypermagnesemia; E87.8 Other disorders of electrolyte and fluid balance, not elsewhere classified; N39.0 Urinary tract infection, site not specified; F42.9 Obsessive-compulsive disorder, unspecified; Z20.822 Contact with and (suspected) exposure to COVID-19; I11.0 Hypertensive heart disease with heart failure; Z90.710 Acquired absence of both cervix and uterus; Z79.899 Other long term (current) drug therapy; Z88.1 Allergy status to other antibiotic agents; Z88.6 Allergy status to analgesic agent; Z88.8 Allergy status to other drugs, medicaments and biological substances; Z88.5 Allergy status to narcotic agent; G31.84 Mild cognitive impairment of uncertain or unknown etiology